=== PATIENT | male | born 1965 | race Caucasian/White ===

== ENCOUNTER 2018-10-17 22:39 | Inpatient (IN) | payer MEDICAID ==
[~2018-10-17] VITALS: Ht 162.6 cm; Wt 48.0 kg
--- NOTE | 2018-10-17 23:23 | NUR ---
PT C/O MULTIPLE ABSCESSES. SWELLING NOTED TO ABILIO THIGHS, LEFT BUTTOCK, AND RIGHT AXILLARY AREA. PT STS THAT THEY ARE FROM HEROIN INJECTION. PT REPORTS NO OTHER COMPLAINTS. PT DENIES FEVER/CHILLS, PAIN, N/V/D. AWAITING MSE. NAD NOTED AT THIS TIME. WILL CONTINUE TO MONITOR.
--- NOTE | 2018-10-18 00:31 | NUR ---
AND US AT BEDSIDE TO ATTEMPT US GUIDED IV PLACEMENT
[2018-10-18 01:26] LABS: BASOPHIL % 0.3 % (0-2)
--- NOTE | 2018-10-18 01:27 | NUR ---
IV ABX STARTED PER MD ORDER. PT AWAKE AND ALERT, LAYING IN POSITION OF COMFORT. VSS, RESPS E/U, NAD NOTED AT THIS TIME. WILL CONTINUE TO MONITOR.
[2018-10-18 01:29] LABS: PLATELET COUNT 415 x10^3mcL (130-400); RED CELL DISTRIBUTION WIDTH 19.5 % (11.5-14.5)
[2018-10-18 01:32] LABS: ALKALINE PHOSPHATASE 55 U/L (46-116); ALT/SGPT 10 U/L (16-63); AST/SGOT 22 U/L (15-37); CALCIUM 7.2 mg/dL (8.5-10.1); CARBON DIOXIDE 30.2 mmol/L (21-32); CHLORIDE SERUM 99 mmol/L (98-107); GFR1 > 60 mL/min; GLUCOSE SERUM 107 mg/dL (74-106); SODIUM SERUM 134 mmol/L (136-145)
[2018-10-18 01:33] LABS: ALBUMIN 1.9 g/dL (3.4-5.0); TOTAL PROTEIN, SERUM 9.1 g/dL (6.4-8.2)
[2018-10-18 01:43] LABS: POTASSIUM SERUM 2.8 mmol/L (3.5-5.1)
--- NOTE | 2018-10-18 02:00 | NUR ---
REPORT GIVEN TO JYOTI FAIRBANKS
--- NOTE | 2018-10-18 02:15 | NUR ---
RECIEVED PT VIA [facility]ERSUDHEER FROM ER, ACCOMPANIED BY NURSE. PT ADMITTED FOR ABSCESS PAIN, PT REPORTS INJECTING HEROINE INTO RT THIGH, LEFT BUTTOCKS AND LEFT THIGH AND RT LATERAL CHEST WALL (BELOW AXILLARY). MULTIPLE DRAINING ABSCESS. PT HOMELESS, HAS BEEN USING HEROINE FOR 35 YEARS. RESP EVEN AND UNLABORED ON RA, DENIES SOB. MEDSURG PT, DENIES CP. PULSES PALPABLE BILAT, RLE 2+ PITTING EDEMA D/T ABSCESS INFECTIONS. PT HAS IV 20G TO LEFT UPPER ARM, BELOW AXILLARY D/T PT VERY HARD STICK. ABD SOFT, ROUND, DENIES ABD PAIN. PT VOIDS FREELY, DENIES N/V/D. PT RECEIVED VANCO AND ROCEPHIN. ALL COMFORT AND SAFETY MEASURES PROVIDED FOR, CALL LIGHT WITHIN REACH, BED IN LOWEST POSITION, WILL CONTINUE TO MONITOR.
[2018-10-18 02:30] LABS: CHOLESTEROL/HDL RATIO 1.9
[2018-10-18 04:45] VITALS: BP 94/54
[2018-10-18 06:24] LABS: BASOPHIL % 0.3 % (0-2); CALCIUM 6.9 mg/dL (8.5-10.1); CARBON DIOXIDE 24.7 mmol/L (21-32); CHLORIDE SERUM 103 mmol/L (98-107); CREATININE SERUM 0.9 mg/dL (0.7-1.3); GFR1 > 60 mL/min; GLUCOSE SERUM 83 mg/dL (74-106); PLATELET COUNT 397 x10^3mcL (130-400); POTASSIUM SERUM 3.5 mmol/L (3.5-5.1); SODIUM SERUM 136 mmol/L (136-145)
[2018-10-18 06:55] LABS: RED CELL DISTRIBUTION WIDTH 19.7 % (11.5-14.5)
[2018-10-18 07:44] VITALS: BP 89/47
--- NOTE | 2018-10-18 08:15 | NUR ---
PATIENT WENT TO [facility].
[2018-10-18 09:13] LABS: UA SPECIFIC GRAVITY <=1.005 (1.005-1.035); microscopic required? YES; urine erythrocyte 2+ (NEGATIVE)
[2018-10-18 09:17] LABS: AMPHETAMINE QUAL UR NONE DETECTED (See below)
--- NOTE | 2018-10-18 10:31 | NUR ---
RECEIVED PATIENT FROM OR AFTER I AND D OF MULTIPLE ABSCESSES TO RT CHEST, LT THIGN AND HIP AND RT THIGH. DSRG INTACT. DENIED PAIN. IVF RESUMED TO LUE. V/S = [id number]/69; O2 SAT 99% ON RA. CALL LIGHT IN REACH.
--- NOTE | 2018-10-18 14:05 | NUR ---
STATED WHOLE BODAY PAIN. TYLENOL 650MG PO GIVEN.
--- NOTE | 2018-10-18 14:39 | NUR ---
Discount pharmacy card and list to low cost medical clinics given to patient by Carolynn Correa.
[2018-10-18 17:03] VITALS: BP 95/50
--- NOTE | 2018-10-18 17:54 | NUR ---
SLEEPING NOW. PATIENT VOID 3600 CC OF LIGHT YELLOWISH URINE. B/P = 95/50. DR. OLIVA NOTIFIED.
--- NOTE | 2018-10-18 19:00 | NUR ---
RECEIVED PT FROM DAY SHIFT RN. PT IS ALERT AND ORIENTED TO PERSON PLACE TIME AND SITUATION AND IS ABLE TO FOLLOW COMMANDS. PT DENIES SOB AND CHEST PAIN ON ROOM AIR. THERE ARE NO USE OF ACCESSORY MUSCLES OR LABORED BREATHING ON ASSESSMENT. PT HAS GENERALIZED WEAKNESS BUT IS AMBULATORY. ENCOURAGE PT TO USE THE CALL LIGHT WHEN ATTEMPTING TO AMBULATE IN ORDER TO REDUCE THE RISK OF FALLS. TJERE ARE MULTIPLE ABSCESSES NOTED TO THE SKIN S/P I&D R CHEST, R UPPER THIGH X3, L UPPER THIGH X1, L BUTTOCKS. DRESSING CDI. PT DENIES ANY PAIN AT THIS TIME. RIGHT MEDIAL UPPER ARM 20 G IV CDI AT THIS TIME. SAFETY MEASURES ARE IN PLACE. BED IS IN THE LOWEST POSISITON. CALL LIGHT IS WITHIN REACH. WILL CONTINUE TO MONITOR PT.
[2018-10-18 20:43] VITALS: BP 95/49
--- NOTE | 2018-10-19 00:46 | NUR ---
PT RESTING IN BED AT THIS TIME. NO DISTRESS NOTED. NO USE OF ACCESSORY MUSCLES OR LABORED BREATHING.
[2018-10-19 05:47] VITALS: BP 97/47
[2018-10-19 07:29] LABS: BASOPHIL % 0.4 % (0-2)
[2018-10-19 07:32] LABS: PLATELET COUNT 411 x10^3mcL (130-400); RED CELL DISTRIBUTION WIDTH 19.6 % (11.5-14.5)
[2018-10-19 07:54] LABS: CALCIUM 7.6 mg/dL (8.5-10.1); CARBON DIOXIDE 26.2 mmol/L (21-32); CHLORIDE SERUM 104 mmol/L (98-107); CREATININE SERUM 0.9 mg/dL (0.7-1.3); GFR1 > 60 mL/min; GLUCOSE SERUM 93 mg/dL (74-106); MAGNESIUM 1.7 mg/dL (1.8-2.4); PHOSPHOROUS 3.3 mg/dL (2.5-4.9); POTASSIUM SERUM 3.3 mmol/L (3.5-5.1); SODIUM SERUM 137 mmol/L (136-145)
--- NOTE | 2018-10-19 08:01 | NUR ---
HANDOFF REPORT RECEIVED. PATIENT AWAKE. COMPLAINED OF GENERALIZED PAIN. TYLENOL 650MG PO GIVEN. ASSISTED WITH BREAKFAST SET UP. CALL GIBSON WITHIN REACH. NS AT 70CC/ HOUR INFUSING PERIPHERALLY.
[2018-10-19 08:35] VITALS: BP 92/53
--- NOTE | 2018-10-19 08:50 | NUR ---
PAION LEVEL DOWN TO 4/10 AFTER TYLENOL. NO FURTHER COMPLAINTS AT THIS TIME.
--- NOTE | 2018-10-19 10:58 | NUR ---
" I NEED SOMETHING FOR ANXIETY. I USE HEROINE YOU KNOW" . MD PRADO MADE AWARE. ATIVAN 1MG IVP GIVEN OVER 2 MIN. RESTING NOW. CALL GIBSON WITHIN REACH.
--- NOTE | 2018-10-19 11:52 | NUR ---
ASLEEP AT THIS TIME. CALL GIBSON WITHIN REACH.
--- NOTE | 2018-10-19 12:29 | NUR ---
ULTRASOUND OF ABSCESS IN PROGRESS AT BEDSIDE. MSO4 2 MG IVP GIVEN FOR GENERALIZED PAIN. K+ 40 MEQ GIVEN FOR K 3.5.
--- NOTE | 2018-10-19 13:01 | NUR ---
Initial Nutrition Assessment Dx: Multiple abscesses PMHx: Multiple skin abscesses, IV drug abuse PSHx: None Labs: (10/19) Ca 7.6L, H/H 9.2L/28LK K 3.3L Meds: Colace, NSIV, Vancocin, Zofran, Zosyn Diet: Regular PO Intake: 20% x 1 meal today Ht: 163 cm Wt: 48.3 kg BMI: 18.3 (Underweight) IBW: 130# %IBW: 82% UBW: 140-150# several years ago Age: 53 y/o male Food Allergies: NKFA Skin: I and D of multiple abscesses to R chest, upper B/L thighs, buttocks Robert: 17 Edema: +1 pitting to BLE GI: Last BM: x 1 10/18 Nutrition machinery rigger received for appears underweight, malnourished, and admitted with potential risk diagnosis. Per H and P documentations, pt. admitted with multiple skin abscesses to the abdominal region related to IV drug injection/substance abuse. Pt. endorses poor appetite associated with nausea. No vomiting noted at this time. No recent reports of weight changes x 1 month. Requesting for ONS for poor PO intake. Problem with: N/V/D/C: None Problems with: Chewing: N Swallowing: N Current appetite: Fair to poor Recent wt change: None reported %wt change: N/A Vitamin/Supplement use: None Special diet at home: Regular Physical activity: None Education: Diet education not appropriate at this time. Estimated Nutritional Needs Based on current body weight 48.3 kg Energy: 1422-5259 kcal/d (30-35 kcal/kg-underweight, wt gain promotion) Protein: 60-70 g/d (1.2-1.4 g/kg)-wound healing support Fluid: 6154-1284 ml/d (1 ml/kcal) or per doctor Nutrition Diagnosis 1. Underweight r/t poor PO intake AEB reported intake meeting <75% estimated needs and measured BMI 18.3. 2. Increased nutrient needs r/t altered metabolic demands AEB pt. underwent I and D procedure for multiple skin abscesses and increased kcal/protein requirements for wound healing support. Intervention 1. Continue regular diet as ordered and as tolerated. Add Ensure Enlive TID for supplementation/wound healing support. ONS adds 1080 kcal and 60 g protein. Monitor/Evaluate Goal: PO intake at least 75% of estimated needs Monitor: PO intake, Labs, GI function, skin integrity F/U in 3-5 days as moderate risk (10/22-10/24)
--- NOTE | 2018-10-19 13:02 | NUR ---
Intervention 1. Continue regular diet as ordered and as tolerated. Add Ensure Enlive TID for supplementation/wound healing support. ONS adds 1080 kcal and 60 g protein.
--- NOTE | 2018-10-19 15:05 | NUR ---
ASLEEP AT THIS TIME. CALL GIBSON WITHIN REACH.
[2018-10-19 16:39] VITALS: BP 95/52
--- NOTE | 2018-10-19 17:02 | NUR ---
ASLEEP ON ROUTINE ROUNDS. NOT IN ANY DISTRESS. CALL GIBSON WITHIN REACH.
--- NOTE | 2018-10-19 18:20 | NUR ---
MD CHAUDHARI MADE AWARE OF MRSA CRITICAL VALUE. PATIENT PLACED ON CONTACT ISOLATION PER PROTOCOL. TURNED AND REPOSITIONED. ASSISTED WITH DINNER SET UP.
--- NOTE | 2018-10-19 19:30 | NUR ---
RECEIVED PT FROM DAY SHIFT RN. PT AAOX4. DENIES URIOSTEGUI/DIZZINESS. BRETHING EVEN AND UNLABORED ON RA WITH NO SOB NOTED. MED SURG PT, DENIES CHEST PAIN/PRESSURE. ACTIVE BOWEL SOUNDS. DENIES ABD PAIN/N/V. GENERALIZED WEAKNESS. PT ABLE TO TURN AND REPOSITION IN BED. WOUND TO RIGHT SIDE OF BODY, RIGHT THIGH AND LEFT THIGH, WOUND TO BUTTOCKS/COCCYX. ALL WOUNDS COVERED WITH DRESSING, CDI. PT DENIES ANY PAIN OR DISTRESS. IV ELLIOTT PATENT, INFUSING WELL. CONTACT PRECAUTIONS IN PLACE. CALL BUTTON WITHIN REACH. SAFETY PRECAUTIONS IN PLACE. WILL CONTINUE TO MONITOR.
[2018-10-19 21:04] VITALS: BP 99/53
--- NOTE | 2018-10-19 21:44 | NUR ---
PT VOMITTED X1. NAUSEA MEDICATION GIVEN PER EMAR. HOB ELEVATED. CALL BUTTON WITHIN REACH. SAFETY PRECAUTIONS IN PLACE. WILL CONTINUE TO MONITOR.
--- NOTE | 2018-10-20 02:26 | NUR ---
PT RESTING. NO SIGNS OF DISTRESS. BREATHING EVEN AND UNLABORED. IV PATENT, INFUSING WELL. CALL BUTTON WITHIN REACH. SAFETY PRECAUTIONS IN PLACE. WILL CONTINUE TO MONITOR.
--- NOTE | 2018-10-20 04:52 | NUR ---
PT SLEPT MOST OF THE NIGHT WITH NO SIGNS OF DISTRESS. BREATHING EVEN AND UNLABORED ON RA WITH NO SOB NOTED. PT IV INFUSING WELL, NO SIGNS OF INFILTRATION. PT AMBULATORY WITH MINIMAL ASSIST. PT ABLE TO TURN AND REPOSITION NEEDED. PT VOMITTED X1, MEDICATED PER EMAR WITH RELIEF. PT DENIES ANY PAIN. NO SIGNS OF DISTRESS NOTED. CALL BUTTON WITHIN REAH. SAFETY PRECAUTIONS IN PLACE. CONTACT PRECAUTIONS. WILL CONTINUE TO MONITOR AND ENDORSE CARE TO DAY SHIFT RN.
--- NOTE | 2018-10-20 05:52 | NUR ---
PT REPORTED HAVING ANXIETY DUE TO HEROIN WITHDRAWL. MEDICATED PER EMAR. CALL BUTTON WITHIN REACH. SAFETY PRECAUTIONS IN PLACE. WILL CONTINUE TO MONITOR.
[2018-10-20 06:10] VITALS: BP 94/51
[2018-10-20 06:16] LABS: BASOPHIL % 0.2 % (0-2)
[2018-10-20 06:52] LABS: CALCIUM 7.4 mg/dL (8.5-10.1); CARBON DIOXIDE 24.4 mmol/L (21-32); CHLORIDE SERUM 103 mmol/L (98-107); CREATININE SERUM 0.8 mg/dL (0.7-1.3); GFR1 > 60 mL/min; GLUCOSE SERUM 89 mg/dL (74-106); MAGNESIUM 1.7 mg/dL (1.8-2.4); POTASSIUM SERUM 3.4 mmol/L (3.5-5.1); SODIUM SERUM 136 mmol/L (136-145)
--- NOTE | 2018-10-20 07:20 | NUR ---
PT IS AAOX4. LUNG SOUNDS CTA. ON R/A. NO COUGH OR SOB NOTED. NORMAL S1S2 NOTED. ABDOMEN SOFT, NONTENDER, NONDISTENDED. BOWEL SOUNDS ACTIVE. PT HAS C/O DIARRHEA THE PRIOR EVENING. PERIPHERAL PULSES PALPABLE. NO EDEMA NOTED. IVF RUNNING TO ELLIOTT, SITE WNL. NO S/S OF INFECTION NOTED. PT HAS R SIDE LATERAL TO CHEST WOUND, R THIGH WOUNDS X2, L THIGH WOUNDS X 3 PACKED WITH IDOFOAM AND COVERED WITH 4X5 AND ISLAND DRESSING. ALL CDI. PT HAS SKIN TEAR TO SACRAL AREA COVERED WITH CDI OPTIFOAM DRESSING. PT DENIES PAIN AND DISCOMFORT AT THIS TIME. CALL LIGHT WITHIN REACH.
[2018-10-20 07:30] LABS: PLATELET COUNT 438 x10^3mcL (130-400); RED CELL DISTRIBUTION WIDTH 19.7 % (11.5-14.5)
--- NOTE | 2018-10-20 07:30 | NUR ---
PT IN NO SIGNS OF DISTRESS. ENDORSED CARE TO DAY SHIFT RN, ALL QUESTIONS ADDRESSED.
[2018-10-20 07:57] VITALS: BP 102/64
--- NOTE | 2018-10-20 08:06 | NUR ---
PT IS UP OOB AMBULATING HALLWAY, FULL WEIGHT BEARING, NO SOB NOTED.
--- NOTE | 2018-10-20 09:18 | NUR ---
BACTOBAN APPLIED TO NARES, TECHNOLOGY APPLICATIONS ENGINEER ASSISTED IN APPLYING HIBCLENS TO PT'S BODY. PT TOLERATED PROCEDURE WELL. EXTRA FLUIDS GIVEN. PT TAUGHT ABOUT MRSA IN THE NARES AND TO MAINTAIN CONTACT PRECAUTIONS. PT VERBALIZED UNDERSTANDING. CONTACT PRECAUTIONS MAINTAINED. CALL LIGHT WITHIN REACH.
--- NOTE | 2018-10-20 11:30 | NUR ---
PT IS RESTING IN BED. RESP EVEN AND UNLABORED. NO DISTRESS NOTED. DENIES PAIN. CALL LIGHT WITHIN REACH. BED IN LOWEST POSITION. CONTACT PRECAUTIONS MAINTAINED.
--- NOTE | 2018-10-20 13:43 | NUR ---
POTASSIUM 4O MEQ PO GIVEN FOR K+=3.4. ATIVAN 1MG IVP GIVEN FOR FEELINGS OF ANXIETY AND STRESS. RESP EVEN AND UNLABORED. CALL LIGHT WITHIN REACH.
--- NOTE | 2018-10-20 13:53 | NUR ---
MORPHINE 2MG IVP GIVEN IN PREPARATION FOR DRESSING CHANGES. RESP EVEN AND UNLABORED. NO DISTRESS NOTED. CALL LIGHT WITHIN REACH.
--- NOTE | 2018-10-20 14:30 | NUR ---
DRESSING CHANGES PERFORMED AND PICTURES OF WOUNDS TAKEN AND PLACE IN PT'S CHART. REMOVED DRESSINGS AND PACKING FROM R LATERAL SIDE OF TRUNK, R THIGH X 2 WOUNDS, L THIGH X 3 WOUNDS, L HIP X1 WOUND, CLEANSED WITH N/S, PACKED WITH IDOFOAM, COVERED WITH 4X4 GAUZE AND ISLAND DRESSING. WOUND ARE BRIGHT RED WITH PINK EDGES, NO S/S OF INFECTION NOTED. CLEANSED SACRAL SKIN TEAR WITH N/S, APPLIED HYDRAGUARED AND COVERED WITH CDI OPTIFOAM DRESSING. PT TOLERATED WITH PROCEDURE WELL, ALTHOUGH PAINFUL AT TIME. BED IN LOWEST POSITION. CALL LIGHT WITHIN REACH. CONTACT PRECAUTIONS MAINTAINED.
--- NOTE | 2018-10-20 15:55 | NUR ---
RECEIVED ORDER FROM DR. OLIVA, SACRAL WOUND, CLEANSE WITH N/S, PAT DRY, APPLY HYDRAGUARD, APPLY OPTIFOAM DRESSING Q DAILY PRN AND WHEN SOILED OR PULLED. ORDER NOTED AND CARRIED OUT. PT MADE AWARE.
--- NOTE | 2018-10-20 16:26 | NUR ---
PT IS SITTING UP IN BED WATCHING TV. NO DISTRESS NOTED. DENIES PAIN. CALL LIGHT WITHIN REACH.
[2018-10-20 16:34] VITALS: BP 103/54
--- NOTE | 2018-10-20 17:28 | NUR ---
PT TOOK OFF IV FLUIDS, GATHERED BELONGINGS, APPROACHED STATION AND STATED HE WAS GOING HOME. PT STATED HE IS ANXIOUS. PT BACK IN BED, ATIVAN 1 MG IVP GIVEN. RESP EVEN AND UNLABORED. PT EDUCATED ON THE RISK AND BENEFITS OF LEAVING THE HOSPITAL AMA. PT VERBALIZED UNDERSTANDING AND STATED HE WILL STAY UNTIL DISCHARGED PROPERLY. CALL LIGHT WITHIN REACH. CONTACT PRECAUTIONS MAINTAINED. FALL PROTOCOL FOLLOWED.
--- NOTE | 2018-10-20 18:42 | NUR ---
PT IS AAOX4. RESP EVEN AND UNLABORED. NO DISTRESS NOTED. DENIES PAIN. IVF RUNNING TO [facility], SITE WNL. CALL LIGHT WITHIN REACH. WILL ENDORSE ALL CARE TO NOC RN.
[2018-10-20 19:22] VITALS: BP 92/57
--- NOTE | 2018-10-20 19:30 | NUR ---
RECEIVED PT FROM AM NURSE. PT LAYING DOWN IN BED, FOUND IV LINE ON THE FLOOR. IV CATH STILL IN PLACE. TUBING REPLACED. PT AAOX4, ABLE TO MAKE NEEDS KNOWN. PT UNCOOPERATIVE WITH CARE AT THIS TIME. PULLING AT IV LINES. PT MED-SURG, DENIES CP/PRESSURE AT THIS TIME. PALPABLE PULSES TO ALL EXTREMETIES. NO EDEMA NOTED. LUNG SOUNDS CTA, BREATHING EVEN AND UNLABORED ON RA. NO ACUTE DISTRESS NOTED. ABD SOFT AND FLAT, ACTIVE BS X4 QUAD. DENIES N.V, LAST BM 10/19 OF DIARRHEA. VOIDS FREELY BRP OR URINAL. GENERALIZED WEAKNESS. AMBUALTORY. WOUNDS COVERED WITH OPTIFOAM AND DRESSING. ALL DRESSINGS CDI. IV TO ELLIOTT FLUSHING WELL. SITE FREE FROM REDNESS AND SWELLING. BED AT LOWEST SETTING. SIDE RAILS X2UP. CALL LIGHT WITHING REACH. WILL CONTINUE TO MONITOR.
--- NOTE | 2018-10-20 22:00 | NUR ---
PT GETTING OUT OF BED WITHOUT CALLING. IV TUBING DISCONNECTED FROM IV PUMP, PT STATES FEELING ANXIOUS AND CANT STAY IN BED. MEDICATED WITH PRN ATIVAN PER APR. BP 104/61, HR 75. NEW IV TUBING REPLACED. PT REFUSING IV FLUIDS. WILL NOTIFY DOCTOR.
--- NOTE | 2018-10-20 22:26 | NUR ---
PT CONTINUES TO GET OUT OF BED. STATES "I AM GOING HOME", REORIENT PATIENT TO ROOM AND EXPLAINED WHY HE IS HERE. STATES UNDERSTANDING. PT WENT BACK TO ROOM. ASSISTED TO RESTROOM. HAD AN EPISODE OF LOOSE STOOL. ASSISTED BACK TO BED. PT CONTINUES TO REFUSE IV FLUIDS. PT CURRENTLY IN BED, NO ACUTE DISTTRESS NOTED. WILL CONTINUE TO MONITOR.
[2018-10-21] VITALS (8 sets, daily range): BP systolic 80–108; BP diastolic 36–72
--- NOTE | 2018-10-21 00:14 | NUR ---
PT CONTINUES GETTING OUT OF BED WITHOUT CALLING FOR ASSISTANCE. FOUND PT WALKING ON THE NEWBERRY WITH SHORTS AND BLANKET WET WITH URINE. HAD AN EPISODE OF LOOSE STOOL. BED LINEN CHANGED, NEW GOWN PROVIDED. OPTIFOAM TO SACRAL AREA CHANGED DUE TO SOILED WITH STOOL. TOLERATED WELL. NO ACUTE DISTRESS NOTED. ASSISTED PT BACK TO BED. BED AT LOWEST SETTING. SIDE RAILS X2 UP. BED ALARM ON. WILL CONTINUE TO MONITOR.
--- NOTE | 2018-10-21 00:45 | NUR ---
ASSISTED PT TO THE RESTROOM. PT CONITNUES TO HAVE LOOSE STOOL. PT STATES IS A NONSTOP. DR WYATT MADE AWARE OF THE LOOSE STOOL AND PT REFUSING IV FLUIDS. STATED HE WILL COME AND TALK TO PT. WILL CONTINUE TO MONITOR.
--- NOTE | 2018-10-21 01:41 | NUR ---
PT CONTINUES TO BE VERY ANXIOUS AND GETTING OUT OF BED. MEDICATED WITH PRN ATIVAN PER APR. BP 104/60, HR 85. DR WYATT CAME AND TALKED TO PT ABOUT PT REFUSING IV FLUIDS. PER IS OKAY IF PT DOESNT GET FLUIDS. PT
[2018-10-21 06:13] LABS: BASOPHIL % 0.6 % (0-2)
--- NOTE | 2018-10-21 06:24 | NUR ---
PT SLEPT AT INTERVALS THROGHOUT THE NIGHT. PT WAS NO COMPLIANT WITH NURSING CARE, KEPT PULLING AT IV LINES AND GETTING OUT OF BED WITHOUT CALLING FOR ASSISTANCE. CONTINUES HAVING DIARRHEA. JIM CARE RENDERED. LINENS CHANGED AND GOWN. DRESSING TO RLE AND SACRAL OPTIFOAM CHANGED DUE TO BE SOILED WITH STOOL. PT TOLERATED WELL. ALL NEEDS ASSESSED AND ATTENDED. NO ACUTE DISTRESS NOTED. IV TO ELLIOTT FLUSHING WELL. SITE WNL. BED AT LOWEST SETTING. SIDE RAILS X2 UP. CALL LIGHT WITHING REACH. WILL ENDORSE CARE TO AM NURSE.
[2018-10-21 06:43] LABS: PLATELET COUNT 444 x10^3mcL (130-400)
[2018-10-21 06:47] LABS: CALCIUM 8.3 mg/dL (8.5-10.1); CARBON DIOXIDE 23.2 mmol/L (21-32); CHLORIDE SERUM 100 mmol/L (98-107); CREATININE SERUM 0.8 mg/dL (0.7-1.3); GFR1 > 60 mL/min; GLUCOSE SERUM 80 mg/dL (74-106); MAGNESIUM 1.8 mg/dL (1.8-2.4); PHOSPHOROUS 4.1 mg/dL (2.5-4.9); POTASSIUM SERUM 4.5 mmol/L (3.5-5.1); SODIUM SERUM 134 mmol/L (136-145)
[2018-10-21 06:48] LABS: rbc morphology (normal/abnorm) ABNORMAL (NORMAL)
--- NOTE | 2018-10-21 07:10 | NUR ---
PT FOUND TO HAVE DIARRHEA AND NAUSEA WITH VOMITING. WOUND DRESSINGS HAVE BEEN SOAKED WITH DIARRHEA. HOUSEKEEPING CALLED TO CLEAN FLOORS. ALL DRESSINGS, BEDDING, AND PT'S GOWN REMOVED. SACRAL OPTIFOAM REMOVED AREA CLEANSED WITH WOUND COAGULATING DRYING SUPERVISOR, PATTED DRY, HYDRAGUARD APPLIED AND OPTIFOAM PLACED. DRESSING REMOVED FOR LLEX3, RLEX2, AND L HIP. SKIN CLEANED WITH NS AND WOUND COAGULATING DRYING SUPERVISOR, PATTED DRY, 4X4 GAUZE AND ISLAND DRESSING PLACE. PT TOLERATED PROCEDURE WELL. PT IS WEAK AND SLOW TO SPEAK. PT HAS REFUSED IVF. DR. OLIVA MADE AWARE. AIR MATRESS PLACED FOR SKIN MAINTENANCE. NORMAL S1S2 NOTED. LUNG SOUNDS DIMINISHED BILATERALLY. ABDOMEN SOFT, FLAT, HYPERACTIVE, WITH REPORTS OF DIARRHEA X 5 EPISODES DURING NOC. SHIFT. IV CATH WITH FLUIDS N/S LOCKED DUE TO PT'S REFUSAL TO RECEIVE FLUIDS. SITE WNL. COVERED WITH OCCLUSIVE, PATENT. FALL PROTOCOL FOLLOWED. BED IN LOW POSTION. CALL LIGHT WITHIN REACH. CONTACT PRECAUTIONS IN MAINTAINED. CDI. CALL LIGHT WITHIN REACH.
--- NOTE | 2018-10-21 08:48 | NUR ---
ZOFRAN 4MG IVP GIVEN FOR N/V. THEAGRAM HELD DUE TO N/V. DR. OLIVA MADE AWARE OF HELD MD, N/V AND THAT PT HAS BEEN REFUSING IV FLUIDS. ALSO INFORMED DR. OLIVA THAT PT'S B/P IS 93/72 (79), HR 87. HIBLICLENS AND BACTOBAN APPLIED TO AFFECTED AREAS. PT IS CALM AND COOPERATIVE AT THIS TIME. IVF HAVE BEEN STARTED AGAIN. PT INFORMED OF RISK AND BENEFITS OF PULLING OUT IV CATH AND REFUSING IVF ADMINISTRATION. PT NODDED HEAD TO ACKNOWLEDGE TEACHING. BED IN LOW POSITION. FALL PROTOCOL FOLLOWED. CONTACT PRECAUTIONS IN PLACE.
--- NOTE | 2018-10-21 11:23 | NUR ---
STOOL SAMPLES TAKEN FOR STOOL CX AND CDIFF. PT HAD GOWN CHANGE AND BEDDING CHANGED. REMOVED SACRAL DRESSING, CLEANSED WOUND WITH NS, PATTED DRY, AND PLACED CDI DRESSING. PT TOLERATED PROCEDURE WELL. BED IN LOWEST POSITION. BED ALARM ON. CONTACT PRECAUTIONS MAINTAINED. FALL PROTOCOL MAINTAINED.
--- NOTE | 2018-10-21 12:17 | NUR ---
DUE MEDICATION GIVEN. RESP EVEN AND UNLABORED. PT HAS C/O GENERALIZED PAIN. DR. OLIVA STATED SHE WILL ORDER NO IVP MED TO USE OTHER THAN MORPHINE, DUE TO LOW B/P. PT MADE AWARE. CALL LIGHT WITHIN REACH. CONTACT PRECAUTIONS MAINTAINTED.
--- NOTE | 2018-10-21 12:56 | NUR ---
TORADOL 15 MG IVP GIVEN FOR GENERALIZED BODY PAIN 08/22. PT RESPOSITIONED FOR COMFORT. RESP EVEN AND UNLABORED. CALL LIGHT WITHIN REACH. DUE MED GIVEN AND TOLERATED WELL.
--- NOTE | 2018-10-21 14:45 | NUR ---
PT HAS HAD MULTIPLE DIARRHEA EPISODES AND SOILED ALL DRESSINGS. DRESSINGS TO SACRAL AREA, LLE X3, RLEX2 AND L HIP REMOVED, AND ODOFOAM REMOVED. AREAS CLEANSED WITH WOUND PRINTED CIRCUIT BOARDS LAMINATOR, PATTED DRY, AND NEW ODOFOAM PLACED, COVERED WITH 4X4 GAUZED AND CDI ISLAND DRESSINGS. PT TOLERATED PROCEDURE WELL. PT NOTED WITH ERYTHEMA TO R AND L SHOULDERS. AREA COVERED WITH ISLAND DRESSIN TO SKIN MAINTENANCE. PICTURES TAKEN AND DR. OLIVA MADE AWARE OF FINDINGS. CALL LIGHT WITHIN REACH. BED IN LOW POSITION. CONTACT PRECAUTIONS MAINTAINED.
--- NOTE | 2018-10-21 16:41 | NUR ---
ATIVAN 1MP IVP GIVEN FOR ANXIETY. PT CALM AND COOPERATIVE AT THIS TIME. RESP EVEN AND UNLABORED. CALL LIGHT WITHIN REACH. [facility] STAFF IN ROOM ON ONE TO ONE SUPERVISION AT THIS TIME.
--- NOTE | 2018-10-21 16:51 | NUR ---
ZOFRAN 4MG IVP GIVEN FOR N/V. PT HOB AT 45 DEGREES. CALL LIGHT WITHIN REACH. [facility] STAFF AT BEDSIDE ON ONE TO ONE SUPERVISION.
--- NOTE | 2018-10-21 17:55 | NUR ---
FLEXISEAL PLACED, BALLOON FILLED WITH 45ML H2O, PLACED TO R SIDE OF BED BELOW PT. PT TOLERATED PROCEDURE WELL. BED IN LOW POSITION. CALL LIGHT WITHIN REACH.
--- NOTE | 2018-10-21 18:44 | NUR ---
PT SLEEPING BUT EASILY AROUSABLE. RESP EVEN AND AND UNLABORED. NO DISTRESS NOTED. IVF RUNNING TO ELLIOTT, SITE WNL. FLEXISEAL IN PLACE WITH NO DRAINAGE NOTED. CONTACT PRECAUTIONS MAINTAINED. CALL LIGHT WITHIN REACH. WILL ENDORSE CALL CARE TO NOC RN.
--- NOTE | 2018-10-21 19:28 | NUR ---
TORADOL 15 MG IVP GIVEN FOR BACK PAIN. RESP EVEN AND UNLABORED. NO DISTRESS NOTED.
--- NOTE | 2018-10-21 19:30 | NUR ---
RECEIVED PT FROM AM NURSE. PT LAYING DOWN IN BED WITH EYES CLOSED. PT A/O TO NAME AND DATE OF . CONFUSED ABOUT WHERE HE IS, REORIENT PT.MED-GILMAR, DENIES CP/PRESSURE. PALPABLE PULASES TO ALL EXTREMETIES. NO EDEMA NOTED. DIMISHED LUNG SOUNDS. BREATHING EVEN AND UNLABORED ON RA. NO ACUTE DIATREE NOTED. ABD SOFT AND FLAT. ACTIVE BS X4 QUAD. PT CURRENTLY HAVING DIARRHEA. RECTAL TUBE IN PLACE, DRAINING WATERY BROWNISH STOOL TO GRAVITY. VOIDS FREELY ON URINAL. GENERALIZED WEAKNESS. BEDFAST AT THIS TIME. SKIN TEAR TO SACRAL AREA, OPEN WOUNDS RLE X2, RIGHT SIDE OF CHEST, LLE X3 ALL COVERED WITH DRESSING. DRESSING CDI. ON AIR MATTRESS. IV TO ELLIOTT INFUSING D5 1/5NS AT 50ML/HR. SITE WNL. BED AT LOWEST SETTING. SIDE RAILS X2 UP. CALLL LIGHT WITHING REACH. WILL CONTINUE TO MONITOR.
--- NOTE | 2018-10-21 20:50 | NUR ---
PT BP 80/48 MAP 60, HR 106, RESP 36, O2 96%. PT A/O TO NAME AND DATE OF . VERY LETHARGIC. RESPONDS TO VERBAL STIMULI. DR DEMPSEY MADE AWARE OF CURRENT PT STATUS. RECEIVED ORDER FOR 1L NS BOLUS. BOLUS RUNNING AT THIS TIME. PT VOMITING COFFEE GROUND EMESIS. DR DEMPSEY CAME TO SEE PT. STATES HE WILL PUT NEW ORDERS. AWAITING FOR NEW ORDERS.
--- NOTE | 2018-10-21 22:07 | NUR ---
BOLUS FINISHED AT THIS TIME. CURRENT BP 83/36 MAP 55, HR 95. PT A/OX2, RESPOSIVE TO VERBAL STIMULI. NO ACUTE DISTRESS NOTED. DR DEMPSEY MADE AWARE OF CURRENT VITALS. WILL CONTINUE TO MONITOR.
[2018-10-21 22:47] LABS: BASOPHIL % 0.4 % (0-2)
[2018-10-21 22:48] LABS: PLATELET COUNT 491 x10^3mcL (130-400); RED CELL DISTRIBUTION WIDTH 19.5 % (11.5-14.5)
--- NOTE | 2018-10-21 22:58 | NUR ---
LATEST BP 89/45 MAP 60, HR 89. DR DEMPSEY MADE AWARE. AWAITING FOR NEW ORDERS. [facility] CAME BACK, H& H 9.03/15. MADE AWARE. WILL WAIT FOR BLOOD TRANFUSION CONFIRMATION.
--- NOTE | 2018-10-21 23:11 | NUR ---
NEW ORDER FOR NS 500CC BOLUS. BOLUS STARTED AT THIS TIME. WILL CONTINUE TO MONITOR.
--- NOTE | 2018-10-22 00:15 | NUR ---
500CC BOLUS FINISHED AT THIS TIME. CURRENT BP 98/52 MAP 61, HR 88. NO ACUTE DISTRESS NOTE. PT LETHARGIC, CONTINUES TO HAVE EPISODES OF VOMITING. PT RESPONSIVE TO VERBAL STIMULI. WILL CONTINUE TO MONITOR.
--- NOTE | 2018-10-22 00:33 | NUR ---
DR WYATT MADE AWARE OF PT CURRENT BP. PER PT WILL NO NEED BLOOD TRANFUSION AT THIS TIME. WILL CONTINUE TO MONITOR.
--- NOTE | 2018-10-22 01:32 | NUR ---
1000CC BOLUS STARTED PER APR. WILL CONTINUE TO MONITOR.
--- NOTE | 2018-10-22 03:00 | NUR ---
108/55, HR 45, O2 SAT 85%.PT ASYMPTOMATIC. NO ACUTE DISTRES NOTED. ENCOURAGED DEEP BREATHING. HOB ELEVATED. WITH NO IMPROVEMENT ON O2 SAT. DR HUGO MADE AWARE. PER DR CLEMENTS TO PT PUT ON TELE, TELE READING SR AT THIS TIME. PT PUT ON 2L NC, O2 SAT AT 97%. WILL CONTINUE TO MONITOR.
--- NOTE | 2018-10-22 04:32 | NUR ---
AEROLOGIST CALLED AND STATED DR DUNCAN CALLED WILL DO I & D OF LEFT UPPER ARM, LEFT SHOULDER ABSCESS TO FOLLOW 0930 CASE.
--- NOTE | 2018-10-22 04:42 | NUR ---
PT FOUND AMBULATING ON THE HALLWAY. STATES "I AM GOING HOME, MY BOTHER IS GOING TO PICK ME UP", REORIENT PT, ASSISSTED PT BACK TO ROOM. RECTAL TUBE FOUND ON THE FLOOR, IV TUBING DISCONECTED. PT UNCOOPERATIVE WITH NURSING CARE. DR DEMPSEY MADE AWARE. NEW ORDER FOR RESTRAINS RECEIVED. PT PUT ON SOFT WRIST RESTRAINS TO BUE. WILL CONTINUE TO MONITOR.
[2018-10-22 05:00] VITALS: BP 93/53
--- NOTE | 2018-10-22 06:49 | NUR ---
ALBUMIN STARTED PER DR DUNCAN ORDER. SX WILL BE CANCELLED PER DR DUNCAN. PT HAS NOT URINATED, BLADDER SCAN DONE WITH 89CC SHOWN. PT DENIES ANY PAIN. DR DEMPSEY MADE AWARE. PT CONINUES HAVING WATERY STOOLS, TOTAL OUTPUT STOOLS 650CC. ATTEMPTED TO PUT RECTAL TUBE BACK, PT COMBATIVE AND REFUSING CARE. CONTINUES HAVING EPISODES OF COFFEE GROUND EMESIS. PT REMAIN IN RESTRAINS TO BUE. ALL NEEDS ASSESSED AND ATTENED TO. NO ACUTE DISTRESS NOTED. BED AT LOWEST SETTTING. SIDE RAILS X2 UP. CALL LIGHT WITHING REACH. WILL ENDORSE CARE TO AM NURSE.
--- NOTE | 2018-10-22 07:05 | NUR ---
RECEIVED BEDSIDE REPORT FROM SMALL BATTERY PLATE ASSEMBLER NURSE AT THIS TIME. PATIENT RESTING COMFORTABLY IN BED AND LETHARGIC. NO APPARENT DISTRESS OR DISCOMFORT NOTED. BREATHING EVEN AND UNLABORED. NO RESPIRATORY DISTRESS NOTED. PATIENT DENIES CHEST PAIN/PRESSURE. TELE [address] SOFT WRIST RESTRAINTS NOTED TO BUE. MULTIPLE ABSCESSES NOTED WITH DRESSINGS IN PLACE. IV TO RFA PATENT AND INTACT. CONTACT ISOLATION IN PLACE FOR MRSA NARES. ALL QUESTIONS AND CONCERNS ADDRESSED. ALL NEEDS ATTENDED TO. WILL CONTINUE TO MONITOR
[2018-10-22 07:37] LABS: CALCIUM 8.1 mg/dL (8.5-10.1); CARBON DIOXIDE 18.4 mmol/L (21-32); MAGNESIUM 1.8 mg/dL (1.8-2.4); PHOSPHOROUS 4.6 mg/dL (2.5-4.9); POTASSIUM SERUM 3.9 mmol/L (3.5-5.1)
--- NOTE | 2018-10-22 07:40 | NUR ---
PT HAVING HIGH TEMP, TEMP 100.9. COOLING MEASURES INITIATED. MEDICATED WITH PRN TYLENOL PER APR. ENDORSED CARE TO JUAN JOSÉ FAIR[facility]ANKS.
[2018-10-22 07:49] LABS: PLATELET COUNT 462 x10^3mcL (130-400); RED CELL DISTRIBUTION WIDTH 19.8 % (11.5-14.5)
[2018-10-22 08:24] LABS: BAND NEUTROPHIL 0 % (0-10); BASOPHIL 0 % (0-2); MONOCYTE 5 % (0-7); SEGMENTED NEUTROPHILS 83 % (37-75); rbc morphology (normal/abnorm) ABNORMAL (NORMAL)
[2018-10-22 08:25] LABS: PLATELET MORPHOLOGY PLATELETS DECREASED; schistocyte (helmet cell) 1+
[2018-10-22 08:31] VITALS: BP 97/43
--- NOTE | 2018-10-22 09:22 | NUR ---
ECHO CANCELLED, DUPLICATE ORDER. ECHO DONE 10/18/18
--- NOTE | 2018-10-22 10:00 | NUR ---
MORNING MEDICATIONS ADMINISTERED. PATIENT REFUSING MULTIVITAMIN AT THIS TIME. NO APPARENT ADVERSE EFFECTS NOTED. ALL NEEDS ATTENDED TO. WILL CONTINUE TO MONITOR
--- NOTE | 2018-10-22 10:10 | NUR ---
IV TO RFA INFILTRATED AND REMOVED WITH CATH INTACT. ALEX CHARGE NURSE ATTEMPT X2 UNSUCCESSFUL. PATIENT HAS NO IV ACCESS AT THIS TIME. WILL ENDORSE TO ICU NURSE
--- NOTE | 2018-10-22 10:11 | NUR ---
CALLED DOWN TO ICU AND GAVE REPORT TO ANGEL FAIRBANKS AT THIS TIME. ALL QUESTIONS AND CONCERNS ADDRESSED. ALL NEEDS ATTENDED TO. WILL CONTINUE TO MONITOR
[2018-10-22 11:00] VITALS: BP 98/48
--- NOTE | 2018-10-22 11:00 | NUR ---
RC'D PT FROM , TRANSFERRED FROM [facility] TO ICU. PT A/A/O/X4, SPEECH CLEAR AND APPROPRIATE. PT DENIES URIOSTEGUI/DIZZINESS. NO FACIAL DROOP NOTED. PT RESPONDS TO VERBAL COMMANDS AND ABLE TO MAKE NEEDS KNOWN. PERRLA. TRACHEA MIDLINE. NO EENT DRAINAGE NOTED. RESP E/U. LUNGS DIM IN BASES. ON RA, PT DENIES SOB. SPO2 98%, NO RESP DISTRESS NOTED. NSR ON MONITOR. S1S2 AUSCULTATED. PT DENIES CP. PALP PULSES, NO EDEMA NOTED. SKIN WARM TO TOUCH. CAP REFILL <3. NO IV ACCESS AT THIS TIME, PER [facility] RN MD AWARE. GENERALIZED WEAKNESS. PT HAS BILAT SOFT RESTRAINTS, GOOD CIRCULATION NOTED TO BUE. ABDOMEN SOFT AND NONTENDER. ACTIVE BS. PT DENIES N/V. SMALL LOOSE BM NOTED AT THIS TIME, PT CLEANED, LINEN CHANGED. PT INCONTINENT AT TIMES. SACRAL SKIN TEAR NOTED, OPTIFOAM CHANGED AT THIS TIME D/T SATURATED IN BM. LLE OPEN WOUND X3 WITH PACKING, DRESSING CDI. RLE X2, WITH DRESSING CDI. RIGHT CHEST OPEN WOUND WITH DRESSING CDI. MULITPLE HEALED SCARS NOTED TO THE GENERALIZED BODY, SHELLEY. PT CALM AND COOPERATIVE AT THIS TIME. BED IN LOWEST POSITION. WILL CONT TO MONITOR
--- NOTE | 2018-10-22 11:00 | NUR ---
PATIENT TRANSFERRED DOWN TO ICU BED 6 AT THIS TIME. ALL NEEDS ATTENDED TO. ENDORSED ALL CARE TO TIKI ORTIZ.
--- NOTE | 2018-10-22 11:12 | NUR ---
P.T. NOTES UNABLE TO SEE PATIENT FOR P.T., PER NURSING PATIENT WILL BE TRANSFERRED TO ICU.
--- NOTE | 2018-10-22 12:00 | NUR ---
DR OLIVA NOTIFIED AND MADE AWARE THAT PT HAS NO IV ACCESS AT THIS TIME. WILL REATTEMPT FOR IV ACCESS AND INITIATE MEDS ACCORDINGLY.
--- NOTE | 2018-10-22 13:38 | NUR ---
ATTEMPTED IV, NO SUCCESS. DR OLIVA NOTIFIED AND MADE AWARE THAT IV HAS BEEN ATTEMPTED BY [facility] WITH NO SUCCESS. IV MEDS ON HOLD AT THIS TIME D/T NO ACCESS. AWAITING NEW ORDERS FROM DR OLIVA
--- NOTE | 2018-10-22 14:50 | NUR ---
PT HAD LOOSE BROWN BM. PT CLEANED AND LINEN CHANGED. WILL CONT TO MONITOR
--- NOTE | 2018-10-22 15:10 | NUR ---
CONSENT SIGNED FOR CENTRAL LINE AT THIS TIME. DR CHAHAL AT BEDSIDE WITH PT.
[2018-10-22 15:30] VITALS: BP 98/52
--- NOTE | 2018-10-22 15:45 | NUR ---
PHYSICAL THERAPY DAILY NOTES CO-SIGN All documentation done by the Software Packaging Engineer for 10/22/18 has been reviewed. I agree with the documentation. Reviewed/Co-Signed by: Shania Leone PT Documentation Done by:IVETTE MORAES PTA
--- NOTE | 2018-10-22 16:18 | NUR ---
DR RICHARDSON AND DR OLIVA AND ULTRASOUND PRESENT AT BEDSIDE FOR CENTRAL LINE PROCEDURE.
--- NOTE | 2018-10-22 17:37 | NUR ---
XRAY AT BEDSIDE FOR PLACEMENT OF CENTRAL LINE. AWAITING RESULTS AT THIS TIME
--- NOTE | 2018-10-22 17:51 | NUR ---
RIJ CENTRAL LINE IN PLACE, DRESSING CDI. OKAY TO USE FOR ANTIBIOTICS AND FLUIDS AT THIS TIME PER DR BENEDICT AND DR OLIVA. WILL ADMINISTER MEDS ACCORDINGLY PER EMAR
--- NOTE | 2018-10-22 18:40 | NUR ---
PT RESTING IN BED WITH NO APPARENT SIGNS OF DISTRESS. VSS. PT ON RA, SPO2 100%. PT STATES "I JUST WANT TO BE LEFT ALONE TO SLEEP". BED IN LOWEST POSITION. NO APPARENT SIGNS OF DISTRESS. WILL CONT TO MONITOR
[2018-10-22 20:00] VITALS: BP 93/46
--- NOTE | 2018-10-22 20:00 | NUR ---
RECEIVED PT IN BED AWAKE AND ORIENTED X4. SPEECH IS CLEAR. PT APPEARS DROWSY. PT BREATHING EASILY ON ROOM AIR. LUNG SOUNDS CLEAR, DIMINISHED AT BASES. DENIES CHEST PAIN OR PRESSURE. BS ACTIVE IN ALL FOUR QUADS. NO ABD PAIN NOTED. ABD IS FLAT NON DISTENDED. PT WITH MULTIPLE WOUNDS/ ABCESSES WITH DRESSINGS, WHICH ARE CDI. SCATTERED SCABS THROUGH OUT BODY. PT IS VOIDING FREELY, INCONTINENT AT TIMES, PT USES URINAL. TRIPLE LUMEN CENTRAL LINE TO RIGHT IJ INFUSING NS AT 100ML/HR, AT THIS TIME IVF WAS CHANGED TO D5NS AT 200ML/HR PER PREVIOUS ORDERS. SHIFT ASSESSMENT COMPLETED. ALL NEEDS TENDED TO. CALL LIGHT WITHIN REACH. BED IS IN LOWEST POSITION. WILL CONTINUE TO MONITOR CLOSELY.
--- NOTE | 2018-10-22 22:45 | NUR ---
PT IS RESTLESS, MEDICATED WITH ATIVAN ORDERED. ALL NEEDS TENDED TO. WILL CONTINUE TO MONITOR CLOSELY.
[2018-10-23 00:02] VITALS: BP 98/62
--- NOTE | 2018-10-23 00:15 | NUR ---
DR. HOOD IN TO SEE PT. PER ORDERS D/C ZOSYNirmala AT THIS TIME, PT ON VANCO. IS CURRENTLY AWARE VANCO IS ON HOLD D/T HIGH TROUGH.
[2018-10-23 04:09] VITALS: BP 90/43
--- NOTE | 2018-10-23 05:05 | NUR ---
AM CARE PROVIDED, BEDBATH GIVEN; ALL LINEN AND GOWN CHANGED AT THIS TIME. ALL DRESSINGS CHANGED AT THIS TIME. D5NS REMAINS INFUSING WELL AT 200ML/HR. CALL LIGHT WITHIN REACH. WILL CONTINUE TO MONITOR CLOSELY.
[2018-10-23 05:48] LABS: BASOPHIL % 0.1 % (0-2); PLATELET COUNT 344 x10^3mcL (130-400)
[2018-10-23 05:54] LABS: RED CELL DISTRIBUTION WIDTH 19.8 % (11.5-14.5)
[2018-10-23 05:59] LABS: CALCIUM 7.4 mg/dL (8.5-10.1); CARBON DIOXIDE 21.6 mmol/L (21-32); CREATININE SERUM 1.4 mg/dL (0.7-1.3); MAGNESIUM 1.7 mg/dL (1.8-2.4); PHOSPHOROUS 2.7 mg/dL (2.5-4.9); POTASSIUM SERUM 3.2 mmol/L (3.5-5.1)
--- NOTE | 2018-10-23 06:40 | NUR ---
D/C'D IVF NS, PT REMAINS ON D5NS AT 200ML/HR. NEW ORDER FOR MAG PO AND KCL PO, GIVEN ORDERED. PT AWAKE AT THIS TIME DRINKING ENSURE. ALL NEEDS TENDED TO. WILL ENDORSE TO INCOMING SHIFT.
[2018-10-23 08:00] VITALS: BP 96/59
--- NOTE | 2018-10-23 10:20 | NUR ---
DR VARGAS, DR LEIJA AND RSEIDENTS ROUNDING. PATIENT PROVIDED UPDATE BEDSIDE.
--- NOTE | 2018-10-23 11:54 | NUR ---
RECOMMENDATIONS TO S/P I&D SURGICAL WOUNDS AND SACRALCOCCYX PRESSURE ULCER -CLEANS ALL SURGICAL WOUNDS WITH NS. PAT DRY, PACK WIT ADAPTIC DRESSING AND COVER WITH DRY DRESSING QD AND PRN IF SOILING. -CLEANSE SACRALCOCCYX WITH NS, PAT DRY, APPLY Z GUARD AND COVER WITH FOAM DRESSING QD AND PRN IF SOILING -OFFLOAD BILATERAL HEELS BY PLACING PILLOWS UNDER CALVES UNLESS OTHERWISE CONTRAINDICATED -PRESSURE REDISTUBUTION SURFACE THERAPY -CONTINUE TO FOLLOW RD RECOMMENDATIONS
--- NOTE | 2018-10-23 12:24 | NUR ---
0800 PT REVIEVED ASLEEP, EASY TO WAKE, AMBULATED TO BEDSIDE COMMODE AND PASSED MODERATE DARK GREEEN BROWN STOOL, PT CONTINENT, USING URINAL, COOPERATIVE, PT SLIGHTLY CONFUSED, REORIENTED PT TO TIME AND PLACE, PT ORIENTED TO SELF/PT 02SAT 98% ON R/A, PT TOLERATED FULL LIQWUID DIET WELL, AFEBRILE AND IN NO DISTRESS//MW
--- NOTE | 2018-10-23 12:26 | NUR ---
1000PT RESTING QUIETLY IN BED/METAL MACHINE OPERATOR CHANGED ALLL PT DRESSINGS/BED CHANGED AND PT WIPED UP SELF//PT IN ZERO DISTRESS EATING FOOD AND TAKING MEDS/PT BP SOMEWHAT LABILE, POSITIONAL//NOT COMPROMISED NOW//MW
--- NOTE | 2018-10-23 12:29 | NUR ---
1215PT REMAINS IN ZERO DISTRESS , COMPLAINED EARLIER ABOUT MISSING $52/EXPLAINED TO PT THAT NO MONEY WAS REPORTED ON HIM WHEN HE WAS FOUND/PT UNDERSTOOD//MW
--- NOTE | 2018-10-23 16:20 | NUR ---
PT PREPPED FOR XFER TO TELEMETRY/VS STABLE AND PT VERY SLEEPY BUT EASILY AROUSABLE//BP STILL SOMEWHAT LOW BUT PT ASYMOMATIC//MW
--- NOTE | 2018-10-23 16:28 | NUR ---
AVTAR FROM CASE MANAGEMENT/DIRECTOR OF SPORTS PERFORMANCE AT BEDSIDE SPEAKING WITH PATIENT.
--- NOTE | 2018-10-23 17:00 | NUR ---
RECEIVED PT FROM ICU VIA WC, ASSISTED BY ICU GIL RN, PT IN NO ACUTE DISTRESS, VERBAL, SLOVENIAN, ABLE TO MAKE NEEDS KNOWN, CONTACT ISOLATION FOR MRSA NARES, PERLLA, NO REDNESS/DRAINAGE, NO FACIAL DROOP/SLURRED SPEECH, DENIED CP/PRESSURE/URIOSTEGUI, DENIED N/V/DIZZINESS, RESP EVEN, NO SOB/COUGH, RA, TELE #10, NSR, ABD FLAT AND NON-TENDER TO TOUCH, BS ACTIVE X 4, LAST BM TODAY PER PT REPORT, DIARRHEA, SEMI-LIQUID, PALP PULSES, CAP REFILL < 3S, CENTRAL LING RIJ PATENT, DRESSING CDI, SEE SKIN ASSESSMENT, DRESSING CHANGED BY WOUND NURSE TODAY, PICS TAKEN KEPT IN CHART BY WOUND NURSE, DRESSING CDI, SKIN C/D/W, AMBULATORY, CONTINENT, V/S: 98.1, 100/54 (76), 66, 16, 99% AT RA, , ALL NEEDS ADDRESSED AT THIS TIME, SAFETY PROTOCOL FOLLOWED, CONTINUE TO MONITOR
[2018-10-23 17:45] VITALS: BP 100/54
--- NOTE | 2018-10-23 17:56 | NUR ---
PT REPORTED DIARRHEA AND ANXIOUS, MEDICATED PER PRN EMAR, TOLERATED WELL, NO ASE NOTED AT THIS TIME, CONTINUE TO MONITOR
--- NOTE | 2018-10-23 18:46 | NUR ---
PT RESTING IN BED, IN NO ACUTE DISTRESS, DENIED CP/PRESSURE/URIOSTEGUI, DENIED N/V/DIZZINESS, RESP EVEN, NO SOB/COUGH, RA, TELE #10, NSR, CENTRAL LINE RIJ PATENT AND INFUSIGN WELL, DRESSING CDI, ALL NEEDS ADDRESSED AT THIS TIME, SAFETY PROTOCOL FOLLOWED, WILL ENDORSE TO ONCOMING RN
--- NOTE | 2018-10-23 19:10 | NUR ---
REC'D PT FROM DAY NURSE. PT RESTING IN BED. ORIENTED TO SELF AND PLACE ONLY. REORIENTED TO TIME AND SITUATION. SPEECH CLEAR, FOLLOWS COMMANDS. TELE 10. DENIES CP, DIZZINESS, OR PALPITATIONS. DENIES RESP DISTRESS OR SOB. BREATHING EVEN/UNLABORED ON RA. RIJ CENTRAL LINE. X1 PORT PATENT AND INFUSING. X2 PORTS FLUSHED AND PATENT. SITE WNL. ABD SOFT/FLAT. DENIES ABD PAIN, TENDERNESS, OR N/V. VOIDING FREELY. GEN WEAKNESS. REPORTS WALKING "SOMETIMES." PHYSICAL THERAPY. S/P I&D MULTIPLE ABSCESSES. DRESSINGS NOTED TO R LATERAL CHEST, ABILIO LATERAL THIGHS, AND X4 ISLAND DRESSINGS TO L BUTTOCKS. MINIMAL DRAINAGE NOTED. REPORTS ANXIETY BUT KEEPS EYES CLOSED. CALL LIGHT WITHIN REACH, BED AT LOWEST POSITION. WILL CONTINUE TO MONITOR.
[2018-10-23 21:11] VITALS: BP 106/62
--- NOTE | 2018-10-24 00:40 | NUR ---
PT RESTING IN BED WITH EYES CLOSED. LAYING ON R SIDE. NO SIGNS OF DISTRESS NOTED. BREATHING EVEN/UNLABORED ON RA. CALL LIGHT WITHIN REACH, BED AT LOWEST POSITION. WILL CONTINUE TO MONITOR.
--- NOTE | 2018-10-24 04:11 | NUR ---
PT SLEEPING ON L SIDE. FOUND DRESSING ON THE BED. R LATERAL THIGH SURGICAL OPEN WOUNDS X2 EXPOSED. WOUND CARE PROVIDED: CLEANSED WITH NS AND PATTED DRY, PACKED WITH ADAPTIC, APPLIED DRY GAUZE AND COVERED WITH LONG ISLAND DRESSING. NOTED OPEN WOUND TO COCCYX WITH WHITE WOUND BED. NO DRAINAGE NOTED. NONBLANCHABLE ERYTHEMA TO SACRALCOCCGEAL AREA. CLEANSED WITH NS, PATTED DRY, APPLIED HYDRAGUARD AND OPTIFOAM. ISLAND DRESSING TO RUE HALF WAY REMOVED. NOTED HEALED CLOSED WOUND AND LEFT SHELLEY.
[2018-10-24 05:44] VITALS: BP 121/60
[2018-10-24 05:47] VITALS: BP 98/64
--- NOTE | 2018-10-24 05:57 | NUR ---
PT RESTING IN BED WITH EYES CLOSED. AWAKENS WITH VERBAL STIMUI. NO COMPLAINTS AT THIS TIME. BREATHING EVEN/UNLABORED ON RA. DRESSINGS INTACT. NO SIGNIFICANT CHANGES DURING SHIFT. CALL LIGHT WITHIN REACH, BED AT LOWEST POSITION. WILL ENDORSE TO DAY NURSE.
--- NOTE | 2018-10-24 06:21 | NUR ---
PT C/O FEELING ANXIOUS AND AGITATED. PRN ATIVAN GIVEN PER ORDER.
[2018-10-24 07:13] LABS: CALCIUM 7.7 mg/dL (8.5-10.1); CARBON DIOXIDE 24.7 mmol/L (21-32); CHLORIDE SERUM 105 mmol/L (98-107); GFR1 > 60 mL/min; GLUCOSE SERUM 114 mg/dL (74-106); MAGNESIUM 1.6 mg/dL (1.8-2.4); PHOSPHOROUS 2.6 mg/dL (2.5-4.9); POTASSIUM SERUM 3.2 mmol/L (3.5-5.1); SODIUM SERUM 138 mmol/L (136-145)
[2018-10-24 07:16] LABS: BASOPHIL % 0.2 % (0-2); PLATELET COUNT 358 x10^3mcL (130-400)
--- NOTE | 2018-10-24 07:30 | NUR ---
PT ENDORSE TO ME THIS MORNING, LAYING IN BED RESTING. AA/O X4. BREATHING EVEN AND AND UNLABORED ON RA, LUNGS CLEAR. TELE 10 NSR NOTED, HR 73. DENIES ANY CP OR PRESSURE. BOWEL SOUNDS ACTIVE IN ALL FOUR QUADS. LAST BM 10/23. VOIDS FREELY. / URINAL AT BEDSIDE. GEN WEAKNESS, AMB WITH ASSIST/ KNOWS TO CALL FOR ASSIST.IV TO THE RIJ INTACT AND PORTS X3 PATENT. CALL LIGHT IN REACH. BED IN LOW POSITTION. X2 SIDE RAILS UP. WILL CONTINUE TO MONITOR.
[2018-10-24 08:04] LABS: RED CELL DISTRIBUTION WIDTH 19.4 % (11.5-14.5)
[2018-10-24 08:37] VITALS: BP 100/66
--- NOTE | 2018-10-24 12:17 | NUR ---
1. Recommend Regular diet with Ensure Enlive TID when medically appropriate/ tolerated. Discussed recommendations with Dr. Yarbrough.
--- NOTE | 2018-10-24 12:17 | NUR ---
Follow-up Nutrition Assessment: 234T/B STEPHANIEMIRTHA GARCIA CHANDANA MR Dx: Multiple abscesses PMHx: multiple skin abscesses, IV drug use Labs: (10/24): K 3.2L, BG 114H, CA 7.7L, MG 1.6L, WBC 11.4H Meds: Ativan, Colace, D 5%, D 50%, morphine, theragran, zofran Diet: Full liquid diet PO Intake: (10/22) dinner 50%, lunch 70% Weights: (10/18) 48.2 kg, (10/24) 48.3 kg Skin: s/p I&D, multiple abscesses POD 5, dressing noted to R lateral upper chest, bilateral thighs and L hips x 4. Robert: 20 I/Os: (10/24) 4186/2250 (1936) Edema: none GI: Last BM: 10/23 RDN Visit (10/24): Patient was sleeping, per RN Prachi, pt ate about 50% breakfast this morning. Pt is on full liquid diet. Patient has been drinking ONS Ensure Enlive TID. Patient does not have any N/V//D/C at this time. Per progress note (10/24), s/p I and D POD #6 on rt thigh, lt thigh and rt axillary. Planned for I and D on left shoulder and left back. Estimated Nutritional Needs based on current body weight 48.3 kg Energy: 8741-4394 kcal/d (30-35 kcal/kg) - underweight, wt gain promotion Protein: 60-70 g/d (1.2-1.4 g/kg) - wound healing support Fluid: 7990-0422 (1ml/kcal) or per MD Nutrition Diagnosis 1. Underweight related to poor PO intake as evidenced by reported intake meeting >75% estimated needs and BMI 18.3 kg/m2. (ongoing) 2. Increased nutrient needs related to increased metabolic demands as evidenced by pt. underwent I &D procedure for multiple skin abscesses and increased kcal/protein requirements for wound healing support.(ongoing) Intervention 1. Recommend Regular diet with Ensure Enlive TID when medically appropriate/ tolerated. Discussed recommendations with Dr. Yarbrough. Monitor/Evaluate Goal: Have pt meet at least 75% of estimated needs Monitor: PO intake, Labs, GI function F/U in 3-5 days as moderate risk 10/27-
--- NOTE | 2018-10-24 14:03 | NUR ---
PT TOLERATED 100% OF HIS LUNCH, DENIES ANY N/V. WILL CONTINUE TO MONITOR.
[2018-10-24 17:30] VITALS: BP 100/58
--- NOTE | 2018-10-24 17:30 | NUR ---
DRSG CHANGED T O L LATERAL HIPS X4 AND COCCYX= TOLERATED WELL.
--- NOTE | 2018-10-24 17:33 | NUR ---
PT FEELING ANXIOUS, MEDICATED PER EMAR.
[2018-10-24 18:17] VITALS: BP 94/53
--- NOTE | 2018-10-24 18:33 | NUR ---
NO ACUTE CHANGES AT THIS TIME. NO ACUTE RESP DISTRESS OR SOB NOTED. WILL ENDORSE TO INCOMING RN
--- NOTE | 2018-10-24 20:06 | NUR ---
PATIENT RESTING IN BED, ALERT AND ORIENTED X4. RESPIRATION EVEN AND UNLABORED, ON ROOM AIR. ONGOING D5NS AT 100 CC/HR INFUSING WELL AT THE RIJ. DENIES DISCOMFORT/PAIN AT THIS TIME. LBM 10/24/2018. VOIDING FREELY, USES URINAL. GENERALIZED WEAKNESS TO EXTREMITIES. MULTIPLE WOUNDS COVERED WITH DRY AND INTACT DRESSING. ON CONTACT ISOLATION FOR MRSA OF NARES. WILL CONTINUE TO MONITOR.
[2018-10-24 20:10] VITALS: BP 95/56
[2018-10-25 05:58] VITALS: BP 100/56
[2018-10-25 06:13] LABS: BASOPHIL % 0.3 % (0-2); PLATELET COUNT 383 x10^3mcL (130-400)
--- NOTE | 2018-10-25 06:17 | NUR ---
PATIENT AWAKE IN BED WITH COMPLAIN OF ANXIETY. MEDICATED WITH ATIVAN 1 MG IVP ORDERED. RESPIRATION EVEN AND UNLABORED, ON ROOM AIR. DENIES PAIN. RIJ TLC PATENT AND INTACT. DRESSINGS TO MULTIPLE WOUNDS DRY AND INTACT. MORNING CARE PROVIDED. ASSISTED WITH NEEDS. SAFETY OBSERVED. PLACED BED IN THE LOWEST POSITION. PLACED CALL LIGHT WITHIN REACH AT ALL TIMES. ON CONTACT ISOLATION FOR MRSA OF NARES.
--- NOTE | 2018-10-25 07:05 | NUR ---
RECEIVED PT FROM NIGHT NURSE. PT IS LAYING DOWN IN BED RESTING WITH EYES CLOSED. PT LOOKS TO BE IN NO ACUTE DISTRESS AT THIS TIME. MULTIPLE DRESSINGS NOTED AND ARE CDI. IV SITE TO RIJ IS PATENT WITH NO SIGNS OF ERYTHEMA OR SWELLING WITH IV FLUID INFUSING. RESPIRATIONS EVEN AND UNLABORED ON ROOM AIR. BED IN LOWEST POSITION, CALL LIGHT WITHIN REACH. WILL CONTINUE TO MONITOR.
[2018-10-25 07:21] LABS: CALCIUM 8.2 mg/dL (8.5-10.1); CARBON DIOXIDE 24.1 mmol/L (21-32); CHLORIDE SERUM 105 mmol/L (98-107); CREATININE SERUM 1.1 mg/dL (0.7-1.3); GFR1 > 60 mL/min; GLUCOSE SERUM 92 mg/dL (74-106); MAGNESIUM 1.7 mg/dL (1.8-2.4); PHOSPHOROUS 3.6 mg/dL (2.5-4.9); POTASSIUM SERUM 3.6 mmol/L (3.5-5.1); SODIUM SERUM 138 mmol/L (136-145)
[2018-10-25 07:31] LABS: RED CELL DISTRIBUTION WIDTH 19.4 % (11.5-14.5)
--- NOTE | 2018-10-25 07:55 | NUR ---
OBTAINED CONSENT FOR I AND D PLANNED FOR 829. PT AGREEABLE TO PROCEDURE. CHECKLIST COMPLETED. PT CONFIRMED HAS NOT EATEN SINCE LAST NIGHT. WILL CONITNUE TO MONITOR.
--- NOTE | 2018-10-25 08:29 | NUR ---
PT TAKEN DOWN FOR PROCEDURE VIA BED ACCOMPANIED BY NURSE.
--- NOTE | 2018-10-25 10:00 | NUR ---
PERFORMED DRESSING CHANGES OF LEFT AND RIGHT HIP, RIGHT LATERAL CHEST. NO WOUNDS SEEM TO BE HEALING, NO DRAINAGE OR FOUL SMELL, NO ERYTHEMA TO SURROUNDING AREA. NEW DRESSING CDI, WILL CONTINUE TO MONITOR.
--- NOTE | 2018-10-25 10:23 | NUR ---
PT RETURNED FROM OR. PT LOOKS TO BE IN NO ACUTE DISTRESS AT THIS TIME AND DENIES ANY PAIN AT THIS TIME. DRESSING TO LEFT SHOULDER AND UPPER LEFT BACK IS CDI. RESPIRATIONS EVEN AND UNLABORED ON ROOM AIR. IV TO RIJ IS PATENT. ALL THREE PORTS FLUSHING, TWO PORTS HAVE BLOOD RETURN, ONE UNABLE TO GET BLOOD RETURN. CURRENT VITALS ARE TEMP: 97.3, HR; 72, RR; 17, BP: 97/51, O2 100% ON ROOM AIR. BED IN LOWEST POSITION, CALL LIGHT WITHIN REACH. WILL CONTINUE TO MONITOR.
[2018-10-25 17:18] VITALS: BP 92/45
--- NOTE | 2018-10-25 18:18 | NUR ---
PT IS SITTING UP IN BED EATING DINNER. PT LOOKS TO BE IN NO ACUTE DISTRESS AND DENIES ANY PAIN AT THIS TIME. RESPIRIATIONS EVEN AND UNLABORED ON ROOM AIR. DRESSINGS TO LEFT SHOULDER, UPPER BACK, RIGHT LATERAL CHEST, RIGHT AND LEFT HIP AND LEG ARE CDI. OPTIOFOAM DRESSING TO SACRAL AND RIGHT HIP. COMMODE AT BEDSIDE. PT STATES THAT HE CONTINUES TO HAVE MULTIPLE LOOSE STOOLS, PT STATES HE HAS BEEN HAVING THIS TYPE OF STOOL FOR OVER 3 MONTHS. IV SITE PATENT WITH NO SIGNS OF ERYTHEMA OR SWELLING, ALL 3 PORTS FLUSHING FREELY. BED IN LOWEST POSITION, CALL LIGHT WITHIN REACH. WILL CONITNUE TO MONITOR.
--- NOTE | 2018-10-25 18:22 | NUR ---
WILL ENDORSE TO ONCOMING SHIFT.
--- NOTE | 2018-10-25 19:20 | NUR ---
RECEIVED PT FROM PREVIOUS SHIFT. PT A/OX4. DENIES PAIN. DENIES SOB ON RA. IV PATENT AND INFUSING WELL TO RIJ. ALL PORTS FLUSHING WELL, DRESSING CDI. CALL LIGHT WITHIN REACH, BED IN LOW POSITION. WILL CONTINUE TO MONITOR.
[2018-10-25 20:11] VITALS: BP 92/51
[2018-10-26] VITALS (12 sets, daily range): BP systolic 78–127; BP diastolic 35–82
--- NOTE | 2018-10-26 00:43 | NUR ---
PT RESTING IN NO ACUTE DISTRESS. RR EVEN AND UNLABORED. CALL LIGHT WITHIN REACH, BED IN LOW POSITION. WILL CONTINUE TO MONITOR.
[2018-10-26 06:13] LABS: BASOPHIL % 0.2 % (0-2); PLATELET COUNT 349 x10^3mcL (130-400)
--- NOTE | 2018-10-26 06:27 | NUR ---
PT HAD MULTIPLE EPISODES OF DIARRHEA THROUGHOUT SHIFT. WOUND CARE PROVIDED AND SOILED DRESSINGS CHANGED. PT EXPERIENCING HALLUCINATIONS. DR DANIELS
[2018-10-26 06:29] LABS: CALCIUM 7.2 mg/dL (8.5-10.1); CARBON DIOXIDE 22.9 mmol/L (21-32); CHLORIDE SERUM 105 mmol/L (98-107); CREATININE SERUM 1.1 mg/dL (0.7-1.3); GFR1 > 60 mL/min; GLUCOSE SERUM 107 mg/dL (74-106); MAGNESIUM 1.6 mg/dL (1.8-2.4); PHOSPHOROUS 3.6 mg/dL (2.5-4.9); POTASSIUM SERUM 3.1 mmol/L (3.5-5.1); SODIUM SERUM 138 mmol/L (136-145)
--- NOTE | 2018-10-26 06:40 | NUR ---
PT WITH CHILLS, REQUESTING PAIN MEDICATION. NO MEDICATIONS AVAILABLE ON EMAR. DR MONK. WILL CONTINUE TO MONITOR.
--- NOTE | 2018-10-26 06:49 | NUR ---
SPOKE WITH DR HUGO REGARDING PATIENT'S HALLUCINATIONS AND S/S OF WITHDRAWAL. STATES SHE WILL PLACE ORDER FOR MEDICATION. WILL MONITOR.
--- NOTE | 2018-10-26 07:01 | NUR ---
MORPHINE GIVEN IVP PER EMAR
--- NOTE | 2018-10-26 07:50 | NUR ---
RECEIVED PT FROM SAFETY DIRECTOR. PT AWAKE, ALERT A/OX4. PT ON ROOM AIR WITH NO RESP DISTRESS NOTED. IV ACCESS RIJ TLC CDI INFUSING D5NS AT 150ML/HR. PERIPHERAL PULSES PALPABLE, NO EDEMA NOTED. ACTIVE BS NOTED. PT REPORTS DIARRHEA PREVIOUSLY. PT HAS WOUNDS TO LEFT SHOULDER, LEFT UPPER CHEST, BILATERAL HIPS AND RIGHT LATERAL CHEST WITH BANDAGES CDI. PT HAS OPTIFOAM TO SACRAL AREA. PT PREVIOUSLY MEDICATED, NO DISCOMFORT AT THIS TIME. SAFETY MEASURES IN PLACE, BED LOW AND LOCKED. CALL LIGHT WITHIN REACH.
--- NOTE | 2018-10-26 08:08 | NUR ---
PT REFUSED HHN TX THIS MORNING, STATES HIS BREATHING IS FINE. PT ADVISED TO CALL FOR PRN IF NEEDED PRIOR TO NEXT SCHEDULED DOSE. WILL CONTINUE TO MONITOR.
--- NOTE | 2018-10-26 09:30 | NUR ---
ATIVAN NOT ADMINISTERED DUE TO LOW BP, MED WASTED. PT AWAKE, ALERT AT THIS TIME. PT DENIES DIZZINESS.
--- NOTE | 2018-10-26 09:42 | NUR ---
DR MONSON MADE AWARE: PT BP 82/35, MAP 50, TEMP 100.4. INITIAL LACTIC ACID ON ADMIT WAS 1.0, WITH NO REPEAT. AWAITING NEW ORDERS.
--- NOTE | 2018-10-26 10:00 | NUR ---
PATIENT VOMITED 200ML. PT REPORTS MILK MADE HIM NAUSEOUS. WILL MONITOR.
--- NOTE | 2018-10-26 10:11 | NUR ---
VS: BP 78/41 (52), HR 82, TEMP 100.1
--- NOTE | 2018-10-26 10:13 | NUR ---
VS: 100.1, 82, 19, 78/41, MAP 52. PT LAYING FLAT. C/O NAUSEA WITH VOMITTING 200ML EMESIS SO FAR. DENIES ANY DIZZINESS OR CP. AAOX4. AWAKE/ALERT AND TALKING. NS 1L BOLUS TO RIJ CENTRAL LINE INFUSING AT THIS TIME.
--- NOTE | 2018-10-26 10:15 | NUR ---
DUE MEDS ADMINISTERED. (SEE EMAR) TOLERATED WELL. PT ASKING FOR ATIVAN.
--- NOTE | 2018-10-26 10:20 | NUR ---
NS BOLUS INFUSING AT THIS TIME.
--- NOTE | 2018-10-26 10:30 | NUR ---
VS: BLOOD PRESSURE 85/42 (55), HR 80, TEMP 99.3. BLOOD DRAWN FROM RIGHT IJ APURVA CATH FOR LACTIC ACID. PT AWAKE, ALERT. DENIES DIZINESS AT THIS TIME.
--- NOTE | 2018-10-26 10:58 | NUR ---
VS: BP 90/45 (53), HR 73, TEMP 99.5. PT AWAKE, ALERT.
--- NOTE | 2018-10-26 11:29 | NUR ---
VS: BP 81/52 (60), HR 73, TEMP 99.8. PT SLEEPING BUT AROUSABLE. NS BOLUS 500ML STARTED.
--- NOTE | 2018-10-26 12:20 | NUR ---
VS: BP 94/54 (66), HR 74, TEMP 100.1. PT AWAKE, ALERT EATING LUNCH. 500ML FLUID BOLUS FINISHED. SAFETY MAINTAINED.
--- NOTE | 2018-10-26 14:45 | NUR ---
WOUND CARE PROVIDED FOR PATIENT, TOLERATED WELL. ALL BANDAGEDS CLEAN DRY AND INTACT.
--- NOTE | 2018-10-26 15:00 | NUR ---
PT BLOOD PRESSURE 82/52 (61), HR 71. PT AWAKE, ALERT.
--- NOTE | 2018-10-26 15:19 | NUR ---
BLOOD DRAWN FROM RIGHT IJ CATHETER FOR LACTIC ACID. PT TOLERATED WELL.
--- NOTE | 2018-10-26 15:30 | NUR ---
DR MONSON/DR ROSA AWARE OF PT BLOOD PRESSURE. NEW ORDERS GIVEN.
--- NOTE | 2018-10-26 16:16 | NUR ---
NS 100ML BOLUS ADMINISTERED ORDERED. LAB HERE TO DRAW SEPTIC WORKUP PER DR ROSA. PT AWAKE, ALERT. DENIES DIZZINESS.
--- NOTE | 2018-10-26 16:20 | NUR ---
LAB AT BEDSIDE DRAWING LABS
[2018-10-26 16:46] LABS: BASOPHIL % 0.2 % (0-2); PLATELET COUNT 327 x10^3mcL (130-400); RED CELL DISTRIBUTION WIDTH 19.8 % (11.5-14.5)
--- NOTE | 2018-10-26 17:19 | NUR ---
1000ML BOLUS NS COMPLETE. PT BLOOD PRESSURE 93/52. DR OLIVA AWARE.
--- NOTE | 2018-10-26 18:14 | NUR ---
PT STABLE AT THIS TIME. ALL NEEDS TENDED TO THROUGHOUT SHIFT. WILL CONTINUE TO MONITOR AND ENDORSE CARE TO AIRCRAFT MAINTENANCE INSTRUCTOR.
--- NOTE | 2018-10-26 20:12 | NUR ---
CONTACT ISOLATION POSTED FOR MRSA NARES, PT IN BED AAO X4 VERBAL, MARKED WEAKNESS, DENIES PAIN NOT IN ANY DISTRESS, PT ASKING FOR ANXIETY PILL AND NICOTINE PATCH, IVF INFUSING WELL ORDERED, MULTIPLE WOUNDS WITH INTACT DRESSING WAS ENDORSED DRESSING DONE TODAY, NO SIGNS OF BLEEDING OR DRAINAGE, ABLE TO REPOSITIONED SELF, SHIFT ASSESSMENT DONE, PAGED DR PURIED FOR NICOTINE PATCH REQUEST AWAITING FOR CALL BACK, CONT TO MONITOR.
--- NOTE | 2018-10-26 21:49 | NUR ---
INFORMED DR DEMPSEY PT REFUSED PO CARMELLA CLAIMED LAST TIME HE VOMIT UPON TAKING THE MEDICATION, MD WILL CHANGED IT TO IV, ALSO INFORMED PT ASKING FOR NICOTINE PATCH, ATIVAN IVP 1 MG GIVEN PRN FOR ANXIETY, CONT TO MONITOR.
--- NOTE | 2018-10-26 22:35 | NUR ---
PT RECEIVED TYLENOL 650 MG PO FOR C/O HEADACHE 5/10 PER ASSESSMENT AND LOW GRADE FEVER T-100, COOLING MEASURES INITIATED, CONT TO MONITOR.
--- NOTE | 2018-10-27 01:23 | NUR ---
SALOMON ORDERED 40 MEQ IV, MEDS HANGED ORDERED, NICOTINE PATCH ALSO ORDERED, CONT TO MONITOR.
--- NOTE | 2018-10-27 04:01 | NUR ---
2ND BAG OF POTASSIUM HANGED TO COMPLETE THE ORDER OF 40 MEQ IV, PT ASLEEP NO S/SX OF PAIN, SPEC OBTAINED FOR BOTH NARES RECULTURE POST TX, SENT TO LAB.
[2018-10-27 04:12] VITALS: BP 92/62
--- NOTE | 2018-10-27 06:57 | NUR ---
ATIVAN 1MG IVP GIVEN FOR C/O ANXIETY, DENIES PAIN, CLAIMED SLEPT WELL DURING THE SHIFT, ASSISTED NEEDS BM X1 USES BEDSIDE COMMODE, BED ALARM ON, PT DONT CALL FOR HELP RISK FOR FALL, WILL ENDORSE TO INCOMING SHIFT FOR F/U CARE.
[2018-10-27 07:02] LABS: CALCIUM 7.6 mg/dL (8.5-10.1); CARBON DIOXIDE 22.9 mmol/L (21-32); CHLORIDE SERUM 107 mmol/L (98-107); CREATININE SERUM 0.9 mg/dL (0.7-1.3); GFR1 > 60 mL/min; GLUCOSE SERUM 81 mg/dL (74-106); SODIUM SERUM 138 mmol/L (136-145)
--- NOTE | 2018-10-27 07:29 | NUR ---
ASSUMED CARE OF PATIENT. PATIENT AWAKE AND ALERT THIS MORNING. NO COMPLAINTS OF PAIN OR DISCOMFORT. NO APPARENT DISTRESS NOTED. ENTRAL LINE TO RIJ PATENT AND INTACT, INFUSING D5 NS AT 100ML/HR. BED ALARM ON FOR FALL PRECAUTIONS. DRESSING TO RIGHT UPPER BACK CDI. WILL CONTINUE TO MONITOR.
[2018-10-27 08:50] VITALS: BP 98/60
--- NOTE | 2018-10-27 09:04 | NUR ---
PER [employer], OPTIFOAM DRESSING TO COCCYX CHANGED, WOUND CLEANSED WITH NS. PATIENT REQUESTING BEDSIDE COMMODE TO BE CLOSER TO BED SO THAT HE CAN AMBULATE HIMSELF. EDUCATED PATIENT OF FALL RISK, TOLD TO UTILIZE CALL LIGHT WHEN ASSISTANCE IS NEEDED TO GO TO COMMODE.
--- NOTE | 2018-10-27 09:22 | NUR ---
CALL FROM [employer], K LEVEL 4.0. DR. MELARA PAGED TO D/C ORDER.
--- NOTE | 2018-10-27 11:15 | NUR ---
DRESSINGS TO ALL WOUNDS CHANGED. WOUNDS APPEAR CLEAN WITH NO S/SX OF INFECTION. CLEANSED WITH NS PRIOR TO NEW DRESSING.
--- NOTE | 2018-10-27 13:43 | NUR ---
PATIENT COMPLAINING OF NAUSEA AND VOMITTING. PRN ZOFRAN AND PEPTO BISMOL PROVIDED.
--- NOTE | 2018-10-27 14:46 | NUR ---
PATIENT LAYING IN BED WITH NO COMPLAINTS OF PAIN OR DISCOMFORT. NO APPARENT DISTRESS NOTED.
--- NOTE | 2018-10-27 16:58 | NUR ---
PRN ATIVAN PROVIDER PER PATIENT REPORT OF ANXIETY. NEW OPTIFOAM PLACED TO COCCYX PER SOIL[employer]. ADL CARE PROVIDED.
[2018-10-27 17:04] VITALS: BP 93/58
--- NOTE | 2018-10-27 17:15 | NUR ---
PATIENT REQUESTING FOR MORE PEPTOBISMOL, STATES HE DRINKS IT AT HOME AND DOES NOT HAVE DIARRHEA. PATIENT CURRENTLY HAVING INCONTINENT WATERY STOOLS. DR.SABANGAN MONK.
--- NOTE | 2018-10-27 18:59 | NUR ---
PATIENT RESTING IN BED WITH NO COMPLAINTS OF PAIN OR DISCOMFORT. NO APPARENT DISTRESS NOTED. RIJ PATENT AND INFSUING D5 NS AT 100ML/HR. WILL ENDORSE CARE TO ONCOMING RN.
--- NOTE | 2018-10-27 20:01 | NUR ---
PT AWAKE ALERT VERBAL ABLE TO MAKE NEEDS KNOWN, NOT IN ANY DISTRESS LUNGS CTA IVF INFUSING WELL ORDERED, REMAINED ON CONTACT ISO RECULTURE RESULT STILL PENDING, PT CLAIMED HAVING BM X1 3 HRS AGO UNFORMED BUT NOT LOOSE OR WATERY ABLE TO TRANSFER TO BEDSIDE COMMODE, DENIES PAIN, INTACT DRESSING TO WOUND SITES, REPOSITIONED SELF TO COMFORT, REMINDED TO USE THE CALL LIGHT FOR ASSISTANCE, CALL LIGHT AT REACH, SHIFT ASSESSMENT DONE, ATTENDED NEEDS, ASKING FOR ANXIETY PILL, LAST GIVEN @ 1700 EXPLAINED TO THE PT AGREED TO HAVE IT LATER WHEN IT'S TIME, NO ANXIOUS BEHAV OBSERVED, CONT TO MONITOR.
[2018-10-27 21:02] VITALS: BP 99/51
--- NOTE | 2018-10-27 21:57 | NUR ---
PT ASKING FOR ATIVAN AND PAIN MEDS IV OFFERED THE PILL FORM ATIVAN AND PAIN MEDS PER PRN ORDER PT REFUSED STATED HE WILL VOMIT WITH PILLS ALL HE WANTS IT IV, EXPLAINED PT REASONS OF GIVING PO PILL, PT STATED "IT'S THE SAME THING COZ WHEN I GO HOME I WILL ASK MY PRIMARY PHYSICIAN IN [facility] AND THEY WILL GIVE ME THE MEDICATION THAT I NEEDED" INFORMED DR LOPEZ, PT WANT TO TALK TO HER.
--- NOTE | 2018-10-27 22:31 | NUR ---
PT AGREES TO TAKE PO ATIVAN AT THIS TIME, MEDS GIVEN ORDERED PRN FOR ANXIETY, PT THEN ASKING FOR SODA, ALL NEEDS PROVIDED, NO C/O PAIN AT THIS TIME CONT TO MONITOR.
--- NOTE | 2018-10-28 00:17 | NUR ---
PT ASKING AGAIN TO TALK TO THE DOCTOR, HE SAID MD MUST THERE EARLIER AND TAKING SOME NOTES AND HE THOUGHT SHE WILL COME BACK AND TALK TO HIM REGARDING WHAT HE'S ASKING FOR MEDICATION, DR LOPEZ INFORMED.
--- NOTE | 2018-10-28 00:47 | NUR ---
DR. LOPEZ TALKED TO PATIENT REGARDING PAIN MED PO AND ATIVAN PO ONLY.
[2018-10-28 05:37] VITALS: BP 105/64
--- NOTE | 2018-10-28 06:42 | NUR ---
PT ACCIDENTALLY PULLED OUT RT IJ ACCESS NO BLEEDING, LINE FULLY OUT, APPLIED BANDAID TO THE SITE, PT REFUSED PERIPHERAL INSERTION, STATED HE IS GOING HOME TOMORROW AND IV ACCESS IS NO USE SINCE HE DIDNT GET IV MEDICATION, EXPLAINED THE NECESSITY FOR HAVING THE LINE AND DR PRATER ORDERED ALBUMIN NEED TO BE GIVEN AT THIS TIME, PT REFUSED TO GET IT, THEN PT UNKNOWINGLY WENT DOWN THROUGH BACK ELEVATOR, ONE OF ENGINEERING STAFF ALERT THE NURSE, SECURITY CALLED AND ABLE TO BRING BACK PT TO HIS ROOM, ASK PT IF HE WANTS TO GO HOME BUT HE STATED THAT HE WILL GO HOME TOMORROW, HE JUST WENT OUT FOR A WALK, DR MELARA AWARE PT'S RIJ IV ACCESS IS OUT, WILL ENDORSE TO INCOMING SHIFT FOR F/U CARE.
--- NOTE | 2018-10-28 07:19 | NUR ---
REFUSED BLD DRAW FROM MD NIKKIE AWARE.
--- NOTE | 2018-10-28 07:47 | NUR ---
AT 0720 - RECEIVED PATIENT FROM NIGHT NURSE. SLEEPING. RESPIRATIONS REGULAR. CONTINUING TO MONITOR.
[2018-10-28 08:45] VITALS: BP 93/50
--- NOTE | 2018-10-28 10:07 | NUR ---
AT 0900 - AWAKE, ALERT AND ORIENTED X 4. HAS EATEN BREAKFAST. NO C/O PAIN. DRESSINGS TO BLE ADRE DRY AND INTACT. PATIENT STIL REFUSING BLOOD DRAWS AND IV INSERTION. AT 1000 - COMMENCED ON PO BACTRUM. FIRST DOSE ADMINISTERED.
[2018-10-28 11:00] VITALS: BP 95/50
--- NOTE | 2018-10-28 14:43 | NUR ---
AT 1230 - AMBULATED TO BATHROOM AND BACK TO BED. NOTED MODERATE WEAKNESS. SAT UP IN BED FOR LUNCH. AT 1330 - RESTING QUIETLY.
[2018-10-28 16:31] VITALS: BP 91/50
--- NOTE | 2018-10-28 17:31 | NUR ---
AT 1515 -ALL WOUUND DRESSINGS CHANGED. PHOTO DOCUMENTED. WOUNDS CLEANSED WITH SALINE. IODIFORM PACKING APPLIED TO WOUNDS ON ABILIO THIGHS AND CHEST. COVERED WITH ISLAND DRESSINGS. ALL WOUNDS WITH THE EXCEPTION OF LEFT UPPER ARM WOUND, ARE CLEAN WITH RED WOUND BED. MINIMAL EXUDATE. WOUND ON [place]OTT HAS SMALL AMOUNT OF SLOUGH. PATIENT INSTRUCTED IN WOUND CARE AND IMPORTANCE OF KEEPING WOUNDS CLEAN; WASHING HANDS PRIOR AND POST DRESSING CHANGES. STRESSED IMPORTANCE OF THIS PATIENT IS HOMELESS.
--- NOTE | 2018-10-28 19:53 | NUR ---
SHIFT REASSESSMENT DONE.PATIENT ALERT AND ORIENTED.BREATHING EASY.GEN WEAKNESS BUT AMBULATORY.NO IV ACCESS.PO ATB SCHEDULE.MEDSURG APTIENT.SKIN BLE,CHEST,L HIP,SACRAL AND BUTT,WOUND,PICTURE ALREADY TAKEN TODAY,PROTOCOL Q MONDAY.THANKS.VOIDING.HAD ATIVAN AT 1900 PER REPORT.PATIENT IS HOMELESS REPORTED.CALL LIGHT IN REACH.
[2018-10-28 20:44] VITALS: BP 92/43
--- NOTE | 2018-10-28 23:09 | NUR ---
PATIENT GIVEN PM MEDS WITH NO INCIDENT.NO IV LINE.CALL LIGHT IN REACH.
--- NOTE | 2018-10-28 23:39 | NUR ---
RE SWAB MRSA CAME BACK NEGATIVE,WILL DC CONTACT ISOLATION.
[2018-10-28 23:51] VITALS: Ht 162.6 cm; Wt 48.0 kg
--- NOTE | 2018-10-29 03:11 | NUR ---
SLEEPING COMFORTABLY.NO COMPLAINT.
[2018-10-29 04:15] VITALS: BP 90/52
[2018-10-29 06:36] LABS: BASOPHIL % 0.2 % (0-2)
--- NOTE | 2018-10-29 06:37 | NUR ---
I AND O.URINAL AT BEDSIDE.STILL HAS NO IV ACCESS,DECLINE.WILL ENDORSE TO NEXT SHIFT.
[2018-10-29 06:39] LABS: CALCIUM 7.9 mg/dL (8.5-10.1); CARBON DIOXIDE 23.6 mmol/L (21-32); CHLORIDE SERUM 103 mmol/L (98-107); CREATININE SERUM 1.1 mg/dL (0.7-1.3); GFR1 > 60 mL/min; GLUCOSE SERUM 86 mg/dL (74-106); MAGNESIUM 1.9 mg/dL (1.8-2.4); PHOSPHOROUS 4.8 mg/dL (2.5-4.9); POTASSIUM SERUM 3.7 mmol/L (3.5-5.1); SODIUM SERUM 136 mmol/L (136-145)
[2018-10-29 06:50] LABS: PLATELET COUNT 404 x10^3mcL (130-400); RED CELL DISTRIBUTION WIDTH 19.1 % (11.5-14.5)
[2018-10-29 07:17] VITALS: BP 90/46
--- NOTE | 2018-10-29 11:28 | NUR ---
1. Recommend continuing Regular diet with Ensure Enlive TID. 2. Recommend Vitamin C 500 mg/day for wound healing support. Discussed recommendations with Dr. Yarbrough.
--- NOTE | 2018-10-29 11:28 | NUR ---
Follow-up Nutrition Assessment: 234T/B MIRTHA BROWN CHANDANA MR Dx: Multiple abscesses PMHx: multiple skin abscesses, IV drug use Labs: (10/29): CA 7.9L, HGB 8.2L Meds: Ativan, D 5%, D 50%, theragran, zofran Diet: Regular diet PO Intake: (10/28) lunch 20%, breakfast 80%, (10/27) dinner 40%, (10/26) dinner 90% Weights: (10/18) 48.2 kg, (10/24) 48.3 kg, (10/28) 48 kg, (10/29) 48 kg Skin: s/p I&D, multiple abscesses POD 10, daily dressing changes Robert: 18 I/Os: (10/29) 1410/200 (1210) Edema: none GI: Last BM: 10/28 RDN Visit (10/29): Patient was sleeping, per RN Remberto, pt has been drinking ONS Ensure Enlive TID. Patient does not have any N/V/D/C at this time. Per progress note (10/29), Patient admitted for multiple abscess s/p POD #10 from I&D of R. Thigh, L. Thigh and R. Axillary. POD #3 I&D left arm upper aspect and left upper chest posterior axillary border abscess. Pending SS for wound care supplies and Bactrim DS outpatient due to patient homeless status. Estimated Nutritional Needs based on current body weight 48.3 kg Energy: 7231-1153 kcal/d (30-35 kcal/kg) - underweight, wt gain promotion Protein: 60-70 g/d (1.2-1.4 g/kg) - wound healing support Fluid: 6834-1282 (1ml/kcal) or per MD Nutrition Diagnosis 1. Underweight related to poor PO intake as evidenced by reported intake meeting <75% estimated needs and BMI 18.3 kg/m2. (ongoing) 2. Increased nutrient needs related to increased metabolic demands as evidenced by pt. underwent I &D procedure for multiple skin abscesses and increased kcal/protein requirements for wound healing support.(ongoing) Intervention 1. Recommend continuing Regular diet with Ensure Enlive TID. 2. Recommend Vitamin C 500 mg/day for wound healing support. Discussed recommendations with Dr. Yarbrough. Monitor/Evaluate Goal: Have pt meet at least 75% of estimated needs Monitor: PO intake, Labs, GI function F/U in 7 days as low risk 11/05
[2018-10-29 16:28] VITALS: BP 92/54
--- NOTE | 2018-10-29 19:25 | NUR ---
REPORT GIVEN TO FISHING GAME WARDEN NURSE, CARE ENDORSED
--- NOTE | 2018-10-29 19:30 | NUR ---
CARE ASSUMED FROM OUTGOING RN. PT RESTING COMFORTABLY IN BED. NO ACUTE DISTRESS NOTED. EVEN AND UNLABORED RESPIRATIONS ON RA. MEDSURG PT. NO IV ACCESS AT THIS TIME, IS AWARE. WOUND DRESSINGS CDI. NO C/O PAIN AT THIS TIME. BED IN LOWEST POSITION. SIDE RAILS UPX2. CALL LIGHT WITHIN REACH. WILL CONTINUE TO MONITOR.
--- NOTE | 2018-10-30 00:40 | NUR ---
PT SLEEPING COMFORTABLY IN BED. NO ACUTE DISTRESS NOTED. EVEN AND UNLABORED RESPIRATIONS ON RA. BED IN LOWEST POSITION. SIDE RAILS UXP2. CALL LIGHT WITHIN REACH. WILL CONTINUE TO MONITOR.
[2018-10-30 05:13] VITALS: BP 97/55
--- NOTE | 2018-10-30 06:25 | NUR ---
PT SLEPT COMFORTABLY IN INTERVALS THROUGHOUT THE SHIFT. NO ACUTE CHANGES NOTED. ALL NEEDS TENDED TO AND MET. SCHEDULED MEDICATIONS GIVEN. C/O ANXIETY MEDICATED PER EMAR. WOUND DRESSINGS CDI. NO IV ACCESS, MD AWARE. BED IN LOWEST POSITION. SIDE RAILS UPX2. CALL LIGHT WITHIN REACH. WILL ENDORSE TO ONCOMING SHIFT.
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
[2018-10-30 07:28] LABS: BASOPHIL % 0.2 % (0-2); PLATELET COUNT 399 x10^3mcL (130-400)
[2018-10-30 07:34] LABS: CALCIUM 8.3 mg/dL (8.5-10.1); CARBON DIOXIDE 22.9 mmol/L (21-32); CHLORIDE SERUM 98 mmol/L (98-107); CREATININE SERUM 1.3 mg/dL (0.7-1.3); GFR1 > 60 mL/min; GLUCOSE SERUM 87 mg/dL (74-106); MAGNESIUM 2.1 mg/dL (1.8-2.4); PHOSPHOROUS 4.2 mg/dL (2.5-4.9); POTASSIUM SERUM 3.9 mmol/L (3.5-5.1); SODIUM SERUM 132 mmol/L (136-145)
[2018-10-30 08:08] LABS: RED CELL DISTRIBUTION WIDTH 19.5 % (11.5-14.5)
[2018-10-30 08:51] VITALS: BP 90/49
--- NOTE | 2018-10-30 10:00 | NUR ---
INFORMED DR. OLIVA AWARE OF PT BLOOD PRESSURE
[2018-10-30] MEDS ORDERED: BACDS PO (10:50)
[2018-10-30 13:29] VITALS: BP 90/49
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
== END 2018-10-30 13:10 | disposition home or self-care (01) | DRG 710 ==
LOC: ED 22:39 → MU 10-18 01:06 → IC 10-18 01:06 → DU 10-18 01:06 → MU 10-18 03:12 → DU 10-22 03:03 → IC 10-22 10:59 → DU 10-23 16:52 → MU 10-24 11:42
PROVIDERS: Emergency Medicine; Internal Medicine; Surgery; ADMIT Internal Medicine
PROC: 0J9L0ZZ Drainage of Right Upper Leg Subcutaneous Tissue and Fascia, Open Approach (ICD-10-PCS; 2018-10-18)
PROC: 0J960ZZ Drainage of Chest Subcutaneous Tissue and Fascia, Open Approach (ICD-10-PCS; 2018-10-18)
PROC: 05HF33Z Insertion of Infusion Device into Left Cephalic Vein, Percutaneous Approach (ICD-10-PCS; 2018-10-18)
PROC: 0J9M0ZZ Drainage of Left Upper Leg Subcutaneous Tissue and Fascia, Open Approach (ICD-10-PCS; principal; 2018-10-18 08:30)
PROC: 05HM33Z Insertion of Infusion Device into Right Internal Jugular Vein, Percutaneous Approach (ICD-10-PCS; 2018-10-22)
PROC: 0J9F0ZZ Drainage of Left Upper Arm Subcutaneous Tissue and Fascia, Open Approach (ICD-10-PCS; 2018-10-25)
PROC: 0J960ZZ Drainage of Chest Subcutaneous Tissue and Fascia, Open Approach (ICD-10-PCS; 2018-10-25)
DX: A41.9 Sepsis, unspecified organism (principal); E43 Unspecified severe protein-calorie malnutrition; L02.213 Cutaneous abscess of chest wall; L02.415 Cutaneous abscess of right lower limb; E87.1 Hypo-osmolality and hyponatremia; E83.51 Hypocalcemia; E83.42 Hypomagnesemia; L02.416 Cutaneous abscess of left lower limb; L02.414 Cutaneous abscess of left upper limb; F11.23 Opioid dependence with withdrawal; E87.6 Hypokalemia; D53.9 Nutritional anemia, unspecified; D50.9 Iron deficiency anemia, unspecified; F41.9 Anxiety disorder, unspecified
CPT/HCPCS: 36556; 87046; 87046-59; 94150; 97116-GP; C9113; G0378; J0690; J0696; J1642; J1885; J2001; J2060; J2250; J2270; J2354; J2405; J2543; J2704; J3370; J3480; J3490; J7030; J7040; J7042; J7050; J7060; J7070; J7120; J7620; P9045; P9047; Q0092; Q0169